=== PATIENT | male | born 1955 | race African-American/Black ===

== ENCOUNTER 2019-02-26 10:18 | Inpatient (IN) | payer MEDICARE, OTHER | END 2019-03-06 14:00 | disposition home or self-care (01) | LOC: TELE-CENTR 03-01 13:36 → TELE 02-27 08:48 → ER 10:18 → ICU WEST 02-27 08:50 → DOU IN ICU 02-27 17:38 → OVERFLOW 13:33 → ICU WEST 17:23 | PROC: B2111ZZ Fluoroscopy of Multiple Coronary Arteries using Low Osmolar Contrast (ICD-10-PCS; principal; ~2019-02-26) | PROC: 027034Z Dilation of Coronary Artery, One Artery with Drug-eluting Intraluminal Device, Percutaneous Approach (ICD-10-PCS; ~2019-02-26) | PROC: 4A023N7 Measurement of Cardiac Sampling and Pressure, Left Heart, Percutaneous Approach (ICD-10-PCS; ~2019-02-26) | PROC: B2151ZZ Fluoroscopy of Left Heart using Low Osmolar Contrast (ICD-10-PCS; ~2019-02-26) | DX: A41.9 Sepsis, unspecified organism (principal); E11.11 Type 2 diabetes mellitus with ketoacidosis with coma; N17.0 Acute kidney failure with tubular necrosis; I21.4 Non-ST elevation (NSTEMI) myocardial infarction; R65.21 Severe sepsis with septic shock; G92 Toxic encephalopathy; E87.0 Hyperosmolality and hypernatremia; I13.0 Hypertensive heart and chronic kidney disease with heart failure and stage 1 through stage 4 chronic kidney disease, or unspecified chronic kidney disease; I50.32 Chronic diastolic (congestive) heart failure; N18.3 Chronic kidney disease, stage 3 (moderate); E87.5 Hyperkalemia; E87.6 Hypokalemia; E11.22 Type 2 diabetes mellitus with diabetic chronic kidney disease ==

== ENCOUNTER 2019-04-11 00:25 | Inpatient (IN) | payer MEDICARE, OTHER | END 2019-04-17 16:50 | disposition home health service (06) | LOC: WEST WING 04-15 12:59 → TELE-WESTW 04-16 03:52 → WEST WING 04-15 18:33 → ER 00:25 → ICU WEST 05:59 → TELE 07:28 → ICU WEST 20:01 | PROC: 5A1945Z Respiratory Ventilation, 24-96 Consecutive Hours (ICD-10-PCS; principal; ~2019-04-11) | PROC: 0BH17EZ Insertion of Endotracheal Airway into Trachea, Via Natural or Artificial Opening (ICD-10-PCS; ~2019-04-11) | PROC: 30233N1 Transfusion of Nonautologous Red Blood Cells into Peripheral Vein, Percutaneous Approach (ICD-10-PCS; ~2019-04-11) | DX: A41.9 Sepsis, unspecified organism (principal); E11.11 Type 2 diabetes mellitus with ketoacidosis with coma; E43 Unspecified severe protein-calorie malnutrition; J96.01 Acute respiratory failure with hypoxia; J18.9 Pneumonia, unspecified organism; I50.43 Acute on chronic combined systolic (congestive) and diastolic (congestive) heart failure; I63.9 Cerebral infarction, unspecified; J96.02 Acute respiratory failure with hypercapnia; N17.0 Acute kidney failure with tubular necrosis; E87.1 Hypo-osmolality and hyponatremia; N17.9 Acute kidney failure, unspecified; E87.0 Hyperosmolality and hypernatremia; R06.03 Acute respiratory distress; E11.22 Type 2 diabetes mellitus with diabetic chronic kidney disease; I95.9 Hypotension, unspecified; D64.9 Anemia, unspecified; E87.5 Hyperkalemia; I25.10 Atherosclerotic heart disease of native coronary artery without angina pectoris; E55.9 Vitamin D deficiency, unspecified; E87.6 Hypokalemia; N18.3 Chronic kidney disease, stage 3 (moderate) ==

== ENCOUNTER → 2019-05-26 | Outpatient (CLI) | payer MEDICARE, OTHER ==
[~2019-05-26] MED LIST: AML5T PO; ASPI81CH43 PO; ATOR20TA PO; CAR3125T PO; CLOP75TA41 PO; FERR-7 PO; PANT40T PO; SUCR1TAB PO
[2019-05-26 16:30] LABS: Basophils # (auto) 0.1 uL; Basophils % (auto) 0.7 % (0.0-2.0); Eosinophils # (auto) 0.2 uL; Eosinophils % (auto) 1.4 % (0.0-7.0); Lymphocytes # (auto) 1.1 uL; Lymphocytes % (auto) 10.1 % (10.0-50.0); Mean Corpuscular Hemoglobin 24.2 pg (28.0-32.0); Mean Corpuscular Hgb Conc. 29.6 g/dL (32.0-36.0); Mean Corpuscular Volume 81.8 fL (80.0-100.0); Monocytes # (auto) 0.9 uL; Monocytes % (auto) 8.1 % (0.0-12.0); Neutrophils # (auto) 8.9 uL; Neutrophils % (auto) 79.7 % (37.0-80.0); Nucleated Red Blood Cells % 0.3 %; Platelet Count (auto) 526 10^3/uL (140-450); Red Blood Cells 1.95 10^6/uL (4.5-5.90); White Blood Cell 11.2 10^3/uL (4.4-10.8)
[2019-05-26 16:45] LABS: Hemoglobin 4.7 g/dL (13.5-17.5)
[2019-05-26 16:48] LABS: Urine Bacteria NONE SEEN /hpf (None Seen); Urine Blood Negative /uL (Negative); Urine Hyaline Cast FEW /lpf (0 - 2); Urine WBC 1 /hpf (0 - 3)
[2019-05-26 17:02] LABS: BUN/Creatinine Ratio 23.3; Calcium 8.6 mg/dL (8.5-10.1); Potassium 5.2 mmol/L (3.5-5.1)
== END | disposition home or self-care (01) ==
LOC: LAB 15:56
PROVIDERS: ATTEND Internal Medicine
DX: I12.9 Hypertensive chronic kidney disease with stage 1 through stage 4 chronic kidney disease, or unspecified chronic kidney disease (principal); E11.22 Type 2 diabetes mellitus with diabetic chronic kidney disease; N18.3 Chronic kidney disease, stage 3 (moderate); Z79.899 Other long term (current) drug therapy
CPT/HCPCS: 36415; 80048; 81001; 82043; 83036; 84300; 85025; 87086

== ENCOUNTER → 2019-06-02 | Outpatient (CLI) | payer MEDICARE, OTHER ==
[2019-06-02 16:04] LABS: Basophils # (auto) 0.1 uL; Eosinophils # (auto) 0.1 uL; Eosinophils % (auto) 1.3 % (0.0-7.0); Hematocrit 28.9 % (41.0-53.0); Hemoglobin 9.2 g/dL (13.5-17.5); Lymphocytes # (auto) 0.8 uL; Lymphocytes % (auto) 8.6 % (10.0-50.0); Mean Corpuscular Hgb Conc. 31.7 g/dL (32.0-36.0); Mean Corpuscular Volume 85.2 fL (80.0-100.0); Monocytes # (auto) 0.6 uL; Neutrophils # (auto) 7.3 uL; Neutrophils % (auto) 82.1 % (37.0-80.0); Platelet Count (auto) 320 10^3/uL (140-450); Red Cell Distribution Width 18.1 % (11.8-14.3); White Blood Cell 8.9 10^3/uL (4.4-10.8)
== END | disposition home or self-care (01) ==
LOC: LAB 15:30
PROVIDERS: ATTEND Internal Medicine
DX: E11.22 Type 2 diabetes mellitus with diabetic chronic kidney disease (principal); N18.3 Chronic kidney disease, stage 3 (moderate)
CPT/HCPCS: 36415; 85025

== ENCOUNTER 2019-06-12 20:58 | Emergency (ER) | payer MEDICARE, OTHER ==
[~2019-06-12] VITALS: Ht 167.6 cm; Wt 65.3 kg
[2019-06-12] MEDS ORDERED: FUROSEMIDE 40 MG/4 ML VIAL IV ONE (22:30)
[2019-06-12 23:55] LABS: Basophils # (auto) 0.1 uL; Eosinophils # (auto) 0 uL; Lymphocytes # (auto) 0.4 uL; Lymphocytes % (auto) 3.2 % (10.0-50.0); Monocytes # (auto) 0.4 uL; Monocytes % (auto) 2.9 % (0.0-12.0); Neutrophils # (auto) 12.5 uL
[2019-06-12 23:56] LABS: Basophils % (auto) 0.8 % (0.0-2.0); Eosinophils % (auto) 0.3 % (0.0-7.0); Hematocrit 28.5 % (41.0-53.0); Hemoglobin 9.1 g/dL (13.5-17.5); Mean Corpuscular Hemoglobin 27.9 pg (28.0-32.0); Mean Corpuscular Hgb Conc. 31.8 g/dL (32.0-36.0); Mean Corpuscular Volume 87.7 fL (80.0-100.0); Neutrophils % (auto) 92.8 % (37.0-80.0); Platelet Count (auto) 448 10^3/uL (140-450); Red Blood Cells 3.24 10^6/uL (4.5-5.90); White Blood Cell 13.5 10^3/uL (4.4-10.8)
[2019-06-13] MEDS ORDERED: LABETALOL HCL 5 MG/ML ML 20ML VIAL IV ONE
[2019-06-13 00:01] LABS: Red Cell Distribution Width 20.7 % (11.8-14.3)
[2019-06-13 00:06] LABS: Albumin 2.2 g/dL (3.4-5.0); BUN/Creatinine Ratio 19.8; Calcium 8.3 mg/dL (8.5-10.1); Potassium 3.4 mmol/L (3.5-5.1)
[2019-06-13 00:09] LABS: Bilirubin, Total 0.1 mg/dL (0.2-1.0); Total Protein 5.7 g/dL (6.4-8.2)
[2019-06-13 00:14] LABS: Urine Bacteria NONE SEEN /hpf (None Seen); Urine Blood TRACE /uL (Negative); Urine Specific Gravity 1.012 (1.001-1.035); Urine WBC 11 /hpf (0 - 3)
[2019-06-13 05:00] VITALS: BP 181/77
== END 2019-06-13 06:34 | disposition home or self-care (01) ==
LOC: EDBD 20:58 → ER 20:58
DX: E11.649 Type 2 diabetes mellitus with hypoglycemia without coma (principal); T68.XXXA Hypothermia, initial encounter; E11.22 Type 2 diabetes mellitus with diabetic chronic kidney disease; I13.0 Hypertensive heart and chronic kidney disease with heart failure and stage 1 through stage 4 chronic kidney disease, or unspecified chronic kidney disease; N18.9 Chronic kidney disease, unspecified; I50.89 Other heart failure; E78.5 Hyperlipidemia, unspecified; F17.210 Nicotine dependence, cigarettes, uncomplicated; Z79.899 Other long term (current) drug therapy; Z79.4 Long term (current) use of insulin
CPT/HCPCS: 36415; 71045; 80053; 81001; 82962; 83605; 83880; 84484; 85025; 93005; 96374; 96375; 99284; J1940

== ENCOUNTER 2019-07-03 16:49 | Emergency (ER) | payer MEDICARE, OTHER ==
[~2019-07-03] VITALS: Ht 167.6 cm; Wt 63.5 kg
[~2019-07-03 16:49] MED LIST changes: -ATOR20TA50 PO; -PRED1SUS31 OP
[2019-07-03 17:51] LABS: Basophils # (auto) 0.1 uL; Eosinophils # (auto) 0.2 uL; Eosinophils % (auto) 2.6 % (0.0-7.0); Monocytes # (auto) 0.4 uL; Neutrophils # (auto) 6.2 uL; Red Blood Cells 2.41 10^6/uL (4.5-5.90)
[2019-07-03 17:54] LABS: Hematocrit 21.6 % (41.0-53.0); Lymphocytes # (auto) 0.7 uL; Lymphocytes % (auto) 9.6 % (10.0-50.0); Mean Corpuscular Hemoglobin 28.9 pg (28.0-32.0); Mean Corpuscular Hgb Conc. 32.2 g/dL (32.0-36.0); Mean Corpuscular Volume 89.8 fL (80.0-100.0); Monocytes % (auto) 4.9 % (0.0-12.0); Neutrophils % (auto) 81.9 % (37.0-80.0); Platelet Count (auto) 294 10^3/uL (140-450); White Blood Cell 7.5 10^3/uL (4.4-10.8)
[2019-07-03 17:56] LABS: Red Cell Distribution Width 20.4 % (11.8-14.3)
[2019-07-03 19:10] LABS: Alanine Aminotransferase 16 U/L (16-61); Alkaline Phosphatase 96 U/L (45-117); Anion Gap 6 (5-15); Aspartate Aminotransferase 24 U/L (15-37); BUN/Creatinine Ratio 16.2; Bilirubin, Total 0.2 mg/dL (0.2-1.0); Blood Urea Nitrogen 36 mg/dL (7-18); Calcium 8.1 mg/dL (8.5-10.1); Carbon Dioxide 29 mmol/L (21-32); Chloride 106 mmol/L (98-107); GFR African American 38 mL/min; GFR Non-African American 32 mL/min; Glucose 320 mg/dL (74-106); Potassium 3.7 mmol/L (3.5-5.1); Sodium 141 mmol/L (136-145); Total Protein 5.8 g/dL (6.4-8.2)
[2019-07-03 19:11] LABS: Albumin 2.2 g/dL (3.4-5.0)
[2019-07-03 19:52] LABS: INR < 0.93 (0.9-1.15); Partial Thromboplastin Time 27.6 sec (23.64-32.05)
[2019-07-03 20:26] VITALS: BP 175/84
[2019-07-03 20:43] VITALS: BP 182/79
[2019-07-03 21:22] VITALS: BP 183/79
[2019-07-03] MEDS ORDERED: cloNIDine HCL 0.1 MG TAB PO ONE (22:00)
[2019-07-03 22:41] VITALS: BP 198/83
[2019-07-03 23:23] VITALS: BP 179/78
[2019-07-03 23:35] VITALS: BP 184/82
[2019-07-04 00:14] VITALS: BP 181/85
[2019-07-04 00:32] VITALS: BP 196/85
[2019-07-04] MEDS ORDERED: FUROSEMIDE 20 MG/2 ML VIAL IV ONE (00:45)
[2019-07-04 01:18] VITALS: BP 185/84
[2019-07-04 02:07] LABS: Hematocrit 28.9 % (41.0-53.0); Hemoglobin 9.8 g/dL (13.5-17.5)
[2019-07-04] MEDS ORDERED: cloNIDine HCL 0.1 MG TAB ONE (02:29)
[2019-07-04] MEDS ORDERED: hydrALAZINE HCL 20 MG/ML VL IV ONE (03:15)
[2019-07-04 03:57] VITALS: BP 149/64
== END 2019-07-04 04:21 | disposition home or self-care (01) ==
LOC: ER 16:49
DX: D64.9 Anemia, unspecified (principal); E11.22 Type 2 diabetes mellitus with diabetic chronic kidney disease; I13.0 Hypertensive heart and chronic kidney disease with heart failure and stage 1 through stage 4 chronic kidney disease, or unspecified chronic kidney disease; N18.3 Chronic kidney disease, stage 3 (moderate); I50.9 Heart failure, unspecified; E78.5 Hyperlipidemia, unspecified; F17.210 Nicotine dependence, cigarettes, uncomplicated; Z98.61 Coronary angioplasty status; Z79.899 Other long term (current) drug therapy
CPT/HCPCS: 36415; 36430; 71045; 80053; 83735; 85014; 85018; 85025; 85610; 85730; 86850; 86900; 86901; 86920; 94761; 96374; 96375; 99285; J0360; J1940; J7030; P9016

== ENCOUNTER → 2019-07-03 | Outpatient (CLI) | payer MEDICARE, OTHER ==
[~2019-07-03] MED LIST changes: +ATOR20TA50 PO; +PRED1SUS31 OP
[2019-07-03 15:53] LABS: Urine WBC None Seen /hpf (0 - 3)
[2019-07-03 16:06] LABS: Basophils # (auto) 0.1 uL; Eosinophils # (auto) 0.2 uL; Red Cell Distribution Width 20.7 % (11.8-14.3)
[2019-07-03 16:08] LABS: Eosinophils % (auto) 2.6 % (0.0-7.0); Hematocrit 21.2 % (41.0-53.0); Lymphocytes # (auto) 0.7 uL; Lymphocytes % (auto) 8.7 % (10.0-50.0); Mean Corpuscular Hemoglobin 28.6 pg (28.0-32.0); Mean Corpuscular Hgb Conc. 32.3 g/dL (32.0-36.0); Mean Corpuscular Volume 88.6 fL (80.0-100.0); Monocytes # (auto) 0.4 uL; Monocytes % (auto) 4.6 % (0.0-12.0); Neutrophils # (auto) 6.7 uL; Neutrophils % (auto) 83.1 % (37.0-80.0); Platelet Count (auto) 304 10^3/uL (140-450); White Blood Cell 8.1 10^3/uL (4.4-10.8)
[2019-07-03 16:24] LABS: INR < 0.93 (0.9-1.15); Partial Thromboplastin Time 26.9 sec (23.64-32.05)
[2019-07-03 16:27] LABS: Hemoglobin 6.9 g/dL (13.5-17.5)
[2019-07-03 16:32] LABS: Urine Bacteria NONE SEEN /hpf (None Seen); Urine Blood Negative /uL (Negative); Urine Specific Gravity 1.014 (1.001-1.035)
[2019-07-03 16:44] LABS: Albumin 2.2 g/dL (3.4-5.0); Calcium 8.1 mg/dL (8.5-10.1); Magnesium 2.8 mg/dL (1.6-2.6); Potassium 3.6 mmol/L (3.5-5.1)
[2019-07-03 16:50] LABS: BUN/Creatinine Ratio 15.2; Bilirubin, Total 0.2 mg/dL (0.2-1.0); Phosphorus 4.9 mg/dL (2.5-4.90)
[2019-07-04 08:06] LABS: Immunoglobulin G, Serum 576 mg/dL (700-1600)
[2019-07-06 10:46] LABS: Hepatitis B Surface Antibody Positive
[2019-07-06 14:03] LABS: Hepatitis B Surface Antigen Negative (Negative)
[2019-07-06 14:05] LABS: Hepatitis B Core IgM Negative
== END | disposition home or self-care (01) ==
LOC: LAB 15:26
PROVIDERS: ATTEND Internal Medicine Nephrology
DX: E11.22 Type 2 diabetes mellitus with diabetic chronic kidney disease (principal); I12.0 Hypertensive chronic kidney disease with stage 5 chronic kidney disease or end stage renal disease; N18.6 End stage renal disease; R80.9 Proteinuria, unspecified; Z11.59 Encounter for screening for other viral diseases
CPT/HCPCS: 36415; 80053; 80061; 81001; 82784; 83735; 83883; 83970; 84100; 84155; 84165; 84439; 84443; 85025; 85610; 85730; 86334; 86335; 86703; 86705; 86706; 86803; 87340

== ENCOUNTER → 2019-08-18 | Outpatient (CLI) | payer MEDICARE, OTHER ==
[2019-08-18 14:57] LABS: Basophils # (auto) 0.1 uL; Basophils % (auto) 1.1 % (0.0-2.0); Eosinophils # (auto) 0.1 uL; Eosinophils % (auto) 1.5 % (0.0-7.0); Hematocrit 29.7 % (41.0-53.0); Lymphocytes # (auto) 0.7 uL; Lymphocytes % (auto) 9.1 % (10.0-50.0); Mean Corpuscular Hemoglobin 29.4 pg (28.0-32.0); Mean Corpuscular Hgb Conc. 33.6 g/dL (32.0-36.0); Mean Corpuscular Volume 87.5 fL (80.0-100.0); Monocytes # (auto) 0.4 uL; Neutrophils % (auto) 83.3 % (37.0-80.0); Platelet Count (auto) 308 10^3/uL (140-450); Red Blood Cells 3.39 10^6/uL (4.5-5.90); Red Cell Distribution Width 15.5 % (11.8-14.3); White Blood Cell 7.3 10^3/uL (4.4-10.8)
[2019-08-18 15:30] LABS: BUN/Creatinine Ratio 14.8; Calcium 10.4 mg/dL (8.5-10.1); Potassium 3.5 mmol/L (3.5-5.1)
== END | disposition home or self-care (01) ==
LOC: LAB 14:42
PROVIDERS: ATTEND Internal Medicine Nephrology
DX: D64.9 Anemia, unspecified (principal); I13.0 Hypertensive heart and chronic kidney disease with heart failure and stage 1 through stage 4 chronic kidney disease, or unspecified chronic kidney disease; E11.22 Type 2 diabetes mellitus with diabetic chronic kidney disease; I50.9 Heart failure, unspecified; N18.4 Chronic kidney disease, stage 4 (severe)
CPT/HCPCS: 36415; 80048; 85025

== ENCOUNTER → 2019-09-08 | Outpatient (CLI) | payer MEDICARE, OTHER ==
[2019-09-08 16:07] LABS: Eosinophils # (auto) 0.2 uL; Hemoglobin 7.7 g/dL (13.5-17.5); Lymphocytes # (auto) 0.8 uL
[2019-09-08 16:14] LABS: Eosinophils % (auto) 2.9 % (0.0-7.0); Neutrophils % (auto) 79.8 % (37.0-80.0)
[2019-09-08 16:26] LABS: Basophils # (auto) 0.1 uL; Basophils % (auto) 0.7 % (0.0-2.0); Hematocrit 23.3 % (41.0-53.0); Lymphocytes % (auto) 9.7 % (10.0-50.0); Mean Corpuscular Hemoglobin 29.7 pg (28.0-32.0); Mean Corpuscular Hgb Conc. 32.8 g/dL (32.0-36.0); Mean Corpuscular Volume 90.5 fL (80.0-100.0); Monocytes # (auto) 0.5 uL; Monocytes % (auto) 6.9 % (0.0-12.0); Neutrophils # (auto) 6.2 uL; Platelet Count (auto) 304 10^3/uL (140-450); Red Blood Cells 2.58 10^6/uL (4.5-5.90); Red Cell Distribution Width 15.5 % (11.8-14.3); White Blood Cell 7.8 10^3/uL (4.4-10.8)
[2019-09-08 16:51] LABS: Albumin 2.9 g/dL (3.4-5.0); BUN/Creatinine Ratio 11.1; Calcium 8.5 mg/dL (8.5-10.1); Potassium 3.5 mmol/L (3.5-5.1)
[2019-09-08 16:54] LABS: Bilirubin, Total 0.1 mg/dL (0.2-1.0); Total Protein 6.7 g/dL (6.4-8.2)
[2019-09-08 17:00] LABS: Ferritin 24.2 ng/mL (10-322); Free T4 (Free Thyroxine) 0.94 ng/dL (0.89-1.76)
[2019-09-08 17:01] LABS: Folate (Folic Acid) > 24.00 ng/mL (5.38-24)
[2019-09-10 08:06] LABS: Immunoglobulin G, Serum 853 mg/dL (700-1600)
[2019-09-10 08:42] LABS: Protein, Urine 326.2 mg/dL (0.0-11.9)
[2019-09-10 11:13] LABS: 24 Hr. Total Protein, Urine 2772.7 mg/24 Hr (<149.1)
== END | disposition home or self-care (01) ==
LOC: LAB 15:07
PROVIDERS: ATTEND Internal Medicine
DX: I13.0 Hypertensive heart and chronic kidney disease with heart failure and stage 1 through stage 4 chronic kidney disease, or unspecified chronic kidney disease (principal); E11.22 Type 2 diabetes mellitus with diabetic chronic kidney disease; I50.9 Heart failure, unspecified; D63.1 Anemia in chronic kidney disease; N18.3 Chronic kidney disease, stage 3 (moderate); R77.8 Other specified abnormalities of plasma proteins
CPT/HCPCS: 36415; 80053; 82232; 82607; 82668; 82728; 82746; 82784; 83036; 83540; 83615; 83883; 84156; 84436; 84439; 84443; 85025; 85045; 85652; 86038; 86334; 86335; 86880; 86885

== ENCOUNTER → 2019-09-10 | Outpatient (CLI) | payer MEDICARE, OTHER ==
[~2019-09-10] MED LIST changes: +ATOR20TA50 PO; +PRED1SUS31 OP
== END | disposition home or self-care (01) ==
LOC: LAB 10:08
PROVIDERS: ATTEND Internal Medicine
DX: D47.2 Monoclonal gammopathy (principal); I13.0 Hypertensive heart and chronic kidney disease with heart failure and stage 1 through stage 4 chronic kidney disease, or unspecified chronic kidney disease; E11.22 Type 2 diabetes mellitus with diabetic chronic kidney disease; N18.4 Chronic kidney disease, stage 4 (severe); I50.9 Heart failure, unspecified
CPT/HCPCS: 88189; 88291; 88341

== ENCOUNTER → 2019-09-25 | Outpatient (CLI) | payer MEDICARE, OTHER ==
[2019-09-25 13:39] LABS: Basophils # (auto) 0.1 uL; Basophils % (auto) 1.2 % (0.0-2.0); Eosinophils # (auto) 0.1 uL; Eosinophils % (auto) 1.3 % (0.0-7.0); Hematocrit 24.6 % (41.0-53.0); Red Blood Cells 2.58 10^6/uL (4.5-5.90)
[2019-09-25 13:45] LABS: Hemoglobin 8.1 g/dL (13.5-17.5); Lymphocytes # (auto) 0.9 uL; Lymphocytes % (auto) 14.5 % (10.0-50.0); Mean Corpuscular Hemoglobin 31.4 pg (28.0-32.0); Mean Corpuscular Volume 95.1 fL (80.0-100.0); Monocytes # (auto) 0.5 uL; Monocytes % (auto) 7.4 % (0.0-12.0); Neutrophils # (auto) 4.9 uL; Neutrophils % (auto) 75.6 % (37.0-80.0); Platelet Count (auto) 369 10^3/uL (140-450); Red Cell Distribution Width 17.2 % (11.8-14.3); White Blood Cell 6.5 10^3/uL (4.4-10.8)
== END | disposition home or self-care (01) ==
LOC: LAB 13:24
PROVIDERS: ATTEND Internal Medicine Nephrology
DX: N18.4 Chronic kidney disease, stage 4 (severe) (principal); D63.1 Anemia in chronic kidney disease; I50.9 Heart failure, unspecified; R60.9 Edema, unspecified; F32.9 Major depressive disorder, single episode, unspecified; F17.200 Nicotine dependence, unspecified, uncomplicated; Z95.811 Presence of heart assist device; E11.22 Type 2 diabetes mellitus with diabetic chronic kidney disease; I13.0 Hypertensive heart and chronic kidney disease with heart failure and stage 1 through stage 4 chronic kidney disease, or unspecified chronic kidney disease
CPT/HCPCS: 36415; 85025

== ENCOUNTER 2019-09-28 13:59 | Inpatient (IN) | payer MEDICARE, OTHER ==
[~2019-09-28] VITALS: Ht 167.6 cm; Wt 61.9 kg
[~2019-09-28 13:59] MED LIST changes: -ATOR20TA50 PO; -PRED1SUS31 OP
[2019-09-28 14:39] LABS: Basophils # (auto) 0 uL; Basophils % (auto) 0.7 % (0.0-2.0); Eosinophils # (auto) 0.1 uL; Eosinophils % (auto) 1.8 % (0.0-7.0); Hematocrit 22.9 % (41.0-53.0); Hemoglobin 7.5 g/dL (13.5-17.5); Lymphocytes # (auto) 0.8 uL; Lymphocytes % (auto) 13.2 % (10.0-50.0); Mean Corpuscular Hemoglobin 31.6 pg (28.0-32.0); Mean Corpuscular Hgb Conc. 32.8 g/dL (32.0-36.0); Mean Corpuscular Volume 96.5 fL (80.0-100.0); Monocytes # (auto) 0.4 uL; Monocytes % (auto) 6.9 % (0.0-12.0); Neutrophils # (auto) 4.8 uL; Neutrophils % (auto) 77.4 % (37.0-80.0); Platelet Count (auto) 360 10^3/uL (140-450); Red Blood Cells 2.37 10^6/uL (4.5-5.90); Red Cell Distribution Width 17.2 % (11.8-14.3); White Blood Cell 6.2 10^3/uL (4.4-10.8)
[2019-09-28 15:04] LABS: Albumin 2.9 g/dL (3.4-5.0); Anion Gap 6 (5-15); Blood Urea Nitrogen 32 mg/dL (7-18); Calcium 7.6 mg/dL (8.5-10.1); Carbon Dioxide 24 mmol/L (21-32); Chloride 112 mmol/L (98-107); Glucose 207 mg/dL (74-106); Potassium 4.2 mmol/L (3.5-5.1); Sodium 142 mmol/L (136-145)
[2019-09-28 15:11] LABS: Alanine Aminotransferase 19 U/L (16-61); Alkaline Phosphatase 69 U/L (45-117); Aspartate Aminotransferase 27 U/L (15-37); BUN/Creatinine Ratio 11.1; Bilirubin, Total 0.3 mg/dL (0.2-1.0); GFR African American 28 mL/min; GFR Non-African American 23 mL/min; Total Protein 6.4 g/dL (6.4-8.2)
[2019-09-28] MEDS ORDERED: NITROGLYCERIN 0.4 MG SL TAB SL PRN (16:15)
[2019-09-28] MEDS ORDERED: DEXTROSE (50%) 50ML SYRG IV PRN (16:15)
[2019-09-28] MEDS ORDERED: MORPHINE SULF INJ 2 MG/ML SYRINGE 1ML IV PRN (16:15)
[2019-09-28 16:47] LABS: Cholesterol 160 mg/dL (< 200)
[2019-09-28 16:50] LABS: HDL Cholesterol 66 mg/dL (40-59); LDL Cholesterol 63 mg/dL (< 100); Triglycerides 122 mg/dL (< 150)
[2019-09-28] MEDS ORDERED: hydrALAZINE HCL 20 MG/ML VL IV PRN (17:00)
[2019-09-28] MEDS ORDERED: FAMOTIDINE 20 MG TAB PO SCH (17:30)
[2019-09-28] MEDS: ACCU-CHEK COMFORT CURVE STRIP VI SCH ×2 (17:41→22:11)
[2019-09-28] MEDS: InsuLIN REG 1unit/0.01ml Soln (100units/ml) SC SCH ×2 (17:41→22:11)
[2019-09-28] MEDS ORDERED: ATORVASTATIN 20 MG TAB PO SCH (18:00)
--- NOTE | 2019-09-28 19:20 | NUR ---
Opening Shift Note Received report from rhonda Carson RN. Assumed care of patient, awake and alert. No S/S of distress/SOB or pain. Instructed on POC and to call for assist PRN, will continue to monitor for changes Q1hr and PRN. Bed placed in lowest position, bed alarm turned on and call light within reach.
[2019-09-28 20:00] VITALS: BP 179/64
[2019-09-28 22:00] VITALS: BP 179/64
[2019-09-28] MEDS: FERROUS SULFATE 325 MG TAB PO SCH (22:06)
[2019-09-28] MEDS: CARVEDILOL 3.125 MG TAB PO SCH (22:09)
[2019-09-29] VITALS (12 sets, daily range): BP systolic 115–178; BP diastolic 50–81
--- NOTE | 2019-09-29 05:04 | NUR ---
ROUNDS PATIENT IS RESTING IN BED WITH EYES CLOSED, NO DISTRESS NOTED AND PATIENT DENIES PAIN
[2019-09-29 05:14] LABS: Basophils # (auto) 0.1 uL; Mean Corpuscular Hgb Conc. 32.9 g/dL (32.0-36.0); Mean Corpuscular Volume 94.7 fL (80.0-100.0); Monocytes # (auto) 0.6 uL
[2019-09-29 05:16] LABS: Basophils % (auto) 1.3 % (0.0-2.0); Eosinophils # (auto) 0.2 uL; Eosinophils % (auto) 2.6 % (0.0-7.0); Hematocrit 21.2 % (41.0-53.0); Lymphocytes % (auto) 17.2 % (10.0-50.0); Mean Corpuscular Hemoglobin 31.1 pg (28.0-32.0); Neutrophils # (auto) 3.9 uL; Neutrophils % (auto) 67.9 % (37.0-80.0); Platelet Count (auto) 329 10^3/uL (140-450); Red Blood Cells 2.24 10^6/uL (4.5-5.90); Red Cell Distribution Width 17.1 % (11.8-14.3); White Blood Cell 5.8 10^3/uL (4.4-10.8)
--- NOTE | 2019-09-29 05:20 | NUR ---
LA TORRE FROM LAB CALLED AND REPORTS A HEMOGLOBIN OF 7.0. HOSPITALIST PAGED.
[2019-09-29 05:28] LABS: INR < 0.93 (0.9-1.15); Partial Thromboplastin Time 25.6 sec (23.64-32.05)
[2019-09-29 05:32] LABS: Albumin 2.5 g/dL (3.4-5.0); Calcium 7.5 mg/dL (8.5-10.1); Potassium 3.7 mmol/L (3.5-5.1)
[2019-09-29 05:35] LABS: BUN/Creatinine Ratio 11.6; Bilirubin, Total 0.1 mg/dL (0.2-1.0); Total Protein 5.5 g/dL (6.4-8.2)
--- NOTE | 2019-09-29 06:00 | NUR ---
PATIENT'S BLOOD SUGAR IS 71. PATIENT IS RESTING IN BED, NO DISTRESS NOTED OR NO S/S OF HYPOGLYCEMIA. ORANGE JUICE GIVEN. WILL MONITOR
[2019-09-29] MEDS: ACCU-CHEK COMFORT CURVE STRIP VI SCH ×4 (06:03→22:10)
[2019-09-29] MEDS: InsuLIN REG 1unit/0.01ml Soln (100units/ml) SC SCH ×4 (06:03→22:10)
--- NOTE | 2019-09-29 06:39 | NUR ---
URINE SPECIMEN SENT TO LAB
[2019-09-29 06:40] LABS: Urine Bacteria FEW /hpf (None Seen); Urine Blood Negative /uL (Negative); Urine Hyaline Cast FEW /lpf (0 - 2); Urine Specific Gravity 1.012 (1.001-1.035); Urine WBC 1 /hpf (0 - 3)
--- NOTE | 2019-09-29 06:44 | NUR ---
HOSPITALIST CALLED BACK AND INFORMED OF 7.0 HEMOGLOBIN. RECEIVED AN ORDER TO REPEAT H & H IN 4 HOURS. ORDER NOTED.
--- NOTE | 2019-09-29 07:25 | NUR ---
PATIENT ADMITTED AT 1800 ON 09/28/2019 WITH LEFT SIDE FACIAL DROOP AND DECREASED STRENGTH OF THE RIGHT ARM
[2019-09-29] MEDS: CLOPIDOGREL BISULFATE 75 MG TAB PO SCH (09:32)
[2019-09-29] MEDS: FERROUS SULFATE 325 MG TAB PO SCH (09:32)
[2019-09-29] MEDS: ASPirin 81 mg TAB PO SCH (09:33)
[2019-09-29] MEDS: FAMOTIDINE 20 MG TAB PO SCH (09:33)
[2019-09-29] MEDS: amLODIPine BESYLATE 5 MG TAB PO SCH (09:33)
[2019-09-29] MEDS: CARVEDILOL 3.125 MG TAB PO SCH ×2 (09:34→22:09)
[2019-09-29 11:20] LABS: Hematocrit 21.6 % (41.0-53.0)
--- NOTE | 2019-09-29 12:00 | NUR ---
DR KHOURY INFORMED ABOUT CRITICAL VALUE HgB OF 7.0. ORDERED TRANSFUSION OF 1 UNIT PRBC'S.
[2019-09-29] MEDS ORDERED: DEXTROSE (50%) 50ML SYRG IV PRN (12:45)
[2019-09-29 13:45] LABS: % Iron Saturation 90.8 % (20-55)
[2019-09-29] MEDS ORDERED: IRON SUCROSE COMPLEX 200 MG in SODIUM CHL 0.9% 100 ML IV SCH (16:06)
[2019-09-29] MEDS: ATORVASTATIN 20 MG TAB PO SCH (17:41)
--- NOTE | 2019-09-29 20:10 | NUR ---
Respiratory note: CONTINUOUS PULSOX CHECK ON PT. SPO2 100% ON RA, HR 67, RR 16. NO SIGNS OF ANY RESPIRATORY DISTRESS NOTED.
--- NOTE | 2019-09-29 20:58 | NUR ---
ONE UNIT OF BLOOD TRANSFUSION INITIATED AFTER VERIFYING CONSENTS. PATIENT IS STABLE, RESTING IN BED WITH NO DISTRESS NOTED.
[2019-09-29] MEDS ORDERED: EPOETIN ALFA 4,000 UNIT/ML VL SC ONE (21:00)
[2019-09-29] MEDS ORDERED: LORazepam 2MG/ML-1ML VIAL IV PRN (21:15)
--- NOTE | 2019-09-29 22:00 | NUR ---
Respiratory note: PT REFUSING TO WEAR CPAP. I EXPLAINED DOCTORS ORDERS TO PT AND EXPLAINED THE BENEFITS OF WEARING CPAP AT [facility]. PT STATED HE'S NEVER BEEN DIAGNOSED WITH JAGDEEP NOR HAS HE EVER WORE A CPAP MACHINE BEFORE. PT STATED HE SLEEPS FINE WITH NO ISSUES. ADVISED RN THAT PT REFUSING CPAP. PT STILL CONNECTED TO PULSOX. NO SIGNS OF ANY RESPIRATORY DISTRESS NOTED.
--- NOTE | 2019-09-29 22:00 | NUR ---
IV removal IV to right upper arm infiltrated. IV DC'd with sterile technique, catheter fully intact. Pressure dressing applied to site. Patient tolerated procedure well.
--- NOTE | 2019-09-29 22:00 | NUR ---
IV insertion IV access obtained, via clean sterile technique by inserting 22 gauge catheter at right forearm after first attempt. IV secured properly. No trauma to site. Patient tolerated procedure well.
--- NOTE | 2019-09-29 23:46 | NUR ---
Blood transfusion ended. No adverse reactions noted. Patient is resting in bed alert and awake, denies pain and no distress noted. Vitals are temp 97.9, 66 pulse, 18 respirations, 159/79 blood pressure. Will monitor.
[2019-09-30] VITALS (8 sets, daily range): BP systolic 136–158; BP diastolic 64–79
--- NOTE | 2019-09-30 | NUR ---
ROUNDS ASSISTED PATIENT TO THE COMMODE. PARTIAL BED BATH GIVEN AND COMPLETE BED CHANGED DONE. ASSISTED PATIENT BACK IN BED, RESTING AND NO DISTRESS NOTED AND PATIENT DENIES PAIN.
--- NOTE | 2019-09-30 02:00 | NUR ---
ROUNDS PATIENT IS RESTING IN BED WITH EYES CLOSED, NO DISTRESS NOTED.
--- NOTE | 2019-09-30 03:00 | NUR ---
EPISODE OF CONFUSION PATIENT'S ALARM TURNED ON AND WHEN NURSE GOT THE ROOM, PATIENT IS SITTING UP IN BED, ANXIOUS AND SEEMED STARTLED AND ANXIOUS TO URINATE. PATIENT URINATED ALL OVER AND AROUND THE BEDSIDE COMMODE WHILE NURSE IS ASSISTING PATIENT TO STAND. NURSE CANNOT REACH THE URINAL, SO PATIENT JUST URINATED ON THE FLOOR. AFTER URINATING, ASSISTED PATIENT TO BED, BUT PATIENT SEEMED CONFUSED. PATIENT IS REFUSING BLOOD SUGAR CHECK AND VITAL SIGNS. PATIENT THEN STARTED TO ROLL HIS EYES AROUND AND STATES HE WANT'S TO GET OUT OF THE BUILDING STATES HE DOES NOT KNOW WHERE HE IS AND STARTED CALLING HIS 'S NAME. USING PATIENT'S PHONE, PATIENT WAS ABLE TO CALL AND REASSURED PATIENT THAT PATIENT IS IN THE RIGHT PLACE. AFTER A FEW MINUTES PATIENT CALMED DOWN AND AGREED TO CHECK BLOOD SUGAR AND VITALS. VITALS AND STABLE AND PATIENT'S BLOOD SUGAR IS 302. WILL MONITOR.
--- NOTE | 2019-09-30 04:00 | NUR ---
ROUNDS PATIENT IS RESTING IN BED, ALERT AND ORIENTED AND NO DISTRESS NOTED. NO MORE CONFUSIONS/HALLUCINATIONS NOTED.
[2019-09-30 05:23] LABS: Basophils # (auto) 0.1 uL; Eosinophils # (auto) 0.1 uL; Hemoglobin 8.2 g/dL (13.5-17.5); Monocytes # (auto) 0.7 uL
[2019-09-30 05:26] LABS: Basophils % (auto) 0.7 % (0.0-2.0); Eosinophils % (auto) 1.6 % (0.0-7.0); Hematocrit 24.4 % (41.0-53.0); Lymphocytes # (auto) 0.9 uL; Lymphocytes % (auto) 10.2 % (10.0-50.0); Mean Corpuscular Hemoglobin 30.9 pg (28.0-32.0); Mean Corpuscular Hgb Conc. 33.6 g/dL (32.0-36.0); Mean Corpuscular Volume 91.9 fL (80.0-100.0); Monocytes % (auto) 7.7 % (0.0-12.0); Neutrophils % (auto) 79.8 % (37.0-80.0); Platelet Count (auto) 329 10^3/uL (140-450); Red Blood Cells 2.65 10^6/uL (4.5-5.90); Red Cell Distribution Width 18.4 % (11.8-14.3); White Blood Cell 8.7 10^3/uL (4.4-10.8)
[2019-09-30 05:40] LABS: BUN/Creatinine Ratio 11.7; Calcium 7.5 mg/dL (8.5-10.1); Potassium 4.4 mmol/L (3.5-5.1)
[2019-09-30] MEDS: InsuLIN REG 1unit/0.01ml Soln (100units/ml) SC SCH ×4 (06:41→22:23)
[2019-09-30] MEDS: ACCU-CHEK COMFORT CURVE STRIP VI SCH ×4 (06:43→22:25)
[2019-09-30] MEDS: ASPirin 81 mg TAB PO SCH (09:55)
[2019-09-30] MEDS: FAMOTIDINE 20 MG TAB PO SCH (09:55)
[2019-09-30] MEDS: PANTOPRAZOLE 40 MG TAB PO SCH ×2 (09:55→22:24)
[2019-09-30] MEDS: amLODIPine BESYLATE 5 MG TAB PO SCH (09:56)
[2019-09-30] MEDS: CLOPIDOGREL BISULFATE 75 MG TAB PO SCH (09:57)
[2019-09-30] MEDS: CARVEDILOL 3.125 MG TAB PO SCH ×2 (09:57→22:25)
--- NOTE | 2019-09-30 11:43 | NUR ---
PT Patient was sent down for a bone scan as per ALDEN Carson. Addendum: 09/30/19 at 1144 by DARLYN BURT PTT Amended: Links added.
[2019-09-30] MEDS ORDERED: IRON SUCROSE COMPLEX 200 MG in SODIUM CHL 0.9% 100 ML IV SCH ×2 (12:00)
--- NOTE | 2019-09-30 12:22 | NUR ---
RT NOTE: WENT TO PTS ROOM TO ASSESS BESIDE PULSE OX, SPO2 100%, HR 61, PT IN NO DISTRESS WILL CONTINUE TO MONITOR PT.
[2019-09-30] MEDS: IRON SUCROSE COMPLEX 200 MG in SODIUM CHL 0.9% 100 ML IV SCH (12:30)
[2019-09-30] MEDS: ATORVASTATIN 20 MG TAB PO SCH (17:36)
--- NOTE | 2019-09-30 18:15 | NUR ---
pox check done. Pt is resting with no acute distress noted. hr 70 rr 16 room air pox 100%. Pt asked about cpap at night, Pt continues to deny need for equipment. Pt aware to page if he changes his mind and would like to try the therapy.
--- NOTE | 2019-09-30 19:15 | NUR ---
Opening Shift Note Received report from rhonda Carson RN. Assumed care of patient, resting in bed with eyes closed at this time. Patient is connected to continuous pulse ox saturating at 100% on room air. Repositioned patient head and pillow, No S/S of distress/SOB or pain noted. Will continue to monitor for changes Q1hr and PRN. Bed placed in lowest position, bed alarm turned on and call light within reach.
[2019-09-30] MEDS: INSULIN LANTUS (GLARGINE) 1 /0.01ml (100units/ml) SC SCH (22:23)
[2019-10-01 05:00] VITALS: BP 160/77
--- NOTE | 2019-10-01 05:32 | NUR ---
PATIENT IS RESTING IN BED ALERT AND ORIENTED, NO DISTRESS OR NO CONFUSIONS NOTED, SATURATING AT 100% ON ROOM AIR.
[2019-10-01 06:34] LABS: Basophils # (auto) 0.1 uL; Basophils % (auto) 0.8 % (0.0-2.0); Eosinophils # (auto) 0.1 uL; Eosinophils % (auto) 1.5 % (0.0-7.0); Hematocrit 26.4 % (41.0-53.0); Hemoglobin 8.7 g/dL (13.5-17.5); Lymphocytes # (auto) 1.2 uL; Lymphocytes % (auto) 13.5 % (10.0-50.0); Mean Corpuscular Hemoglobin 30.3 pg (28.0-32.0); Monocytes % (auto) 10.9 % (0.0-12.0); Neutrophils # (auto) 6.5 uL; Neutrophils % (auto) 73.3 % (37.0-80.0); Platelet Count (auto) 365 10^3/uL (140-450); Red Blood Cells 2.87 10^6/uL (4.5-5.90); Red Cell Distribution Width 18.5 % (11.8-14.3); White Blood Cell 8.9 10^3/uL (4.4-10.8)
[2019-10-01] MEDS: InsuLIN REG 1unit/0.01ml Soln (100units/ml) SC SCH ×4 (06:46→21:48)
[2019-10-01] MEDS: INSULIN LANTUS (GLARGINE) 1 /0.01ml (100units/ml) SC SCH ×2 (06:46→21:51)
[2019-10-01] MEDS: ACCU-CHEK COMFORT CURVE STRIP VI SCH ×4 (06:47→21:49)
[2019-10-01] MEDS: LACTULOSE 20Gm/30ML SOLN PO PRN (06:47)
--- NOTE | 2019-10-01 07:00 | NUR ---
BLOOD SUGAR CHECK WAS 59. PATIENT IS ALERT AND ORIENTED AND ASKED FOR ORANGE JUICE INSTEAD OF IV DEXTROSE 50%, AFTER 15 MINUTES BLOOD SUGAR CHECK IS 67. WILL CHECK AGAIN IN ONE HOUR.
[2019-10-01 07:23] LABS: BUN/Creatinine Ratio 12.1; Calcium 7.8 mg/dL (8.5-10.1)
--- NOTE | 2019-10-01 07:40 | NUR ---
OPENING SHIFT NOTE: PATIENT RESTING IN BED. BED IN LOWEST LOCKED POSITION, UPDATE PATIENT ON PLAN OF CARE. CALL LIGHT PLACED WITHIN REACH. FALL PRECAUTIONS IN PLACE, PATIENT VERBALIZED UNDERSTANDING. BOTH IV'S PATENT AND ASYMPTOMATIC. RESPIRATIONS EVEN AND UNLABORED. WILL CONTINUE TO MONITOR.
--- NOTE | 2019-10-01 07:41 | NUR ---
BLOOD SUGAR FOLLOW UP AFTER ORANGE JUICE IS 149. PATIENT IS ALERT AND ORIENTED, NO DISTRESS NOTED AND PATIENT DENIES PAIN.
[2019-10-01 09:00] VITALS: BP 159/77
[2019-10-01] MEDS: FAMOTIDINE 20 MG TAB PO SCH (10:33)
[2019-10-01] MEDS: PANTOPRAZOLE 40 MG TAB PO SCH ×2 (10:33→21:48)
[2019-10-01] MEDS: CLOPIDOGREL BISULFATE 75 MG TAB PO SCH (10:34)
[2019-10-01] MEDS: amLODIPine BESYLATE 5 MG TAB PO SCH (10:34)
[2019-10-01] MEDS: ASPirin 81 mg TAB PO SCH (10:34)
[2019-10-01] MEDS: CARVEDILOL 3.125 MG TAB PO SCH ×2 (10:35→21:48)
--- NOTE | 2019-10-01 11:21 | NUR ---
PT Patient declined to be OOB or do PT during morning PT visit but requested to comeback later. Addendum: 10/01/19 at 1122 by DARLYN BURT PTT Amended: Links added.
--- NOTE | 2019-10-01 11:25 | NUR ---
PT ROUNDS MARITZA AT BEDSIDE. STATES THE LEFT EYE DROOPING IS NEW AND IS CONCERNED. UPON ASSESSMENT PUPILS ARE EQUAL ROUND. SLUGGISH REACTION TO LIGHT AND ACCOMODATION. PUPILS ARE 6MM. PT STATES "MY EYE HAS BEEN DRAINING ALL NIGHT.
--- NOTE | 2019-10-01 11:33 | NUR ---
PAGED MD REED RE: LEFT EYE DROOPING. AWAITING CALL BACK
--- NOTE | 2019-10-01 12:15 | NUR ---
RT NOTE: WENT TO PTS ROOM TO ASSESS BEDSIDE PULSE OX, HR 62, RR 16, SPO2 100% ON RA. PT AWAKE AND ALERT. WILL CONTINUE TO MONITOR PT.
[2019-10-01] MEDS: IRON SUCROSE COMPLEX 200 MG in SODIUM CHL 0.9% 100 ML IV SCH (12:30)
[2019-10-01 13:00] VITALS: BP 161/79
[2019-10-01 17:00] VITALS: BP 136/69
[2019-10-01] MEDS: ATORVASTATIN 20 MG TAB PO SCH (17:56)
--- NOTE | 2019-10-01 19:00 | NUR ---
OPENING NOTE Received report from day shift RN. Patient is A&O X's 4 with no s/s of distress and reports no pain. Patient has some slurred speech. upper and lower extremities strength are strong and equal. Patient demonstrated some right arm ataxia. Patient reports feeling some mild weakness in right leg when walking. Educated patient to use call light when getting up and when in need of assistance. Patient verbalized understanding. Bed is in lowest/locked position with side rails up X's 2 and call light is within reach of patient. Commode is at bedside. Will continue care.
[2019-10-01 22:00] VITALS: BP 144/67
--- NOTE | 2019-10-01 22:00 | NUR ---
PATIENT TO BE NPO AFTER MIDNIGHT Educated patient that MD wants patient to be NPO after midnight in case they are able to perform the URIEL tomorrow. Patient verbalized understanding. Will continue care.
--- NOTE | 2019-10-01 22:47 | NUR ---
PT SEEN FOR NOC CPAP. PT DENIES EVER USING CPAP, NEED FOR CPAP, OR DESIRE FOR CPAP. SPO2 100% ON RA, HR 71. PT DENIES ANY RESPIRATORY DISTRESS. NO DISTRESS NOTED.
[2019-10-02 05:00] VITALS: BP 145/77
[2019-10-02] MEDS: INSULIN LANTUS (GLARGINE) 1 /0.01ml (100units/ml) SC SCH ×2 (06:35→21:42)
[2019-10-02] MEDS: ACCU-CHEK COMFORT CURVE STRIP VI SCH ×4 (06:35→21:42)
[2019-10-02] MEDS: InsuLIN REG 1unit/0.01ml Soln (100units/ml) SC SCH ×4 (06:35→21:41)
--- NOTE | 2019-10-02 07:10 | NUR ---
OPENING SHIFT NOTE: PATIENT RESTING IN BED. BED IN LOWEST LOCKED POSITION, UPDATE PATIENT ON PLAN OF CARE. CALL LIGHT PLACED WITHIN REACH. FALL PRECAUTIONS IN PLACE, PATIENT VERBALIZED UNDERSTANDING. RESPIRATIONS EVEN AND UNLABORED. WILL CONTINUE TO MONITOR.
--- NOTE | 2019-10-02 07:14 | NUR ---
END OF SHIFT NOTE Gave report to day shift RN. Patient is A&O X's 4 with no s/s of distress. Educated patient to notify RN if he feels like his blood sugar is dropping. educated patient on the s/s of hypoglycemia. Patient verbalized understanding. RN aware of high blood sugar this morning and insulin was given. Will endorse care.
[2019-10-02 08:38] VITALS: BP 136/66
[2019-10-02] MEDS: amLODIPine BESYLATE 5 MG TAB PO SCH (09:31)
[2019-10-02] MEDS: CARVEDILOL 3.125 MG TAB PO SCH ×2 (09:31→21:42)
[2019-10-02] MEDS: FAMOTIDINE 20 MG TAB PO SCH (09:32)
[2019-10-02] MEDS: PANTOPRAZOLE 40 MG TAB PO SCH ×2 (09:32→21:43)
--- NOTE | 2019-10-02 12:40 | NUR ---
Nutrition Assessment Notes please see attached link for complete assessment Est. Needs based on BW (58 kg): 2772-1806 kcal (25-30 kcal/kgBW), 46-58 gms pro (0.8-1.0 gms/kgBW r/t elev RFT ckd). Will continue to monitor pertinent labs and reassess nutrient need prn Addendum: 10/02/19 at [address] Amended: Links added.
[2019-10-02] MEDS ORDERED: PRED1SUS31 OP ×2 (12:41)
[2019-10-02] MEDS: CLOPIDOGREL BISULFATE 75 MG TAB PO SCH (12:44)
[2019-10-02] MEDS: ASPirin 81 mg TAB PO SCH (12:44)
[2019-10-02 13:00] VITALS: BP 149/74
[2019-10-02] MEDS: SODIUM FERR GLUC 62.5MG/5ML 125 MG in SODIUM CHL 0.9% 100 ML IV SCH (14:29)
[2019-10-02 15:31] LABS: Hematocrit 27.5 % (41.0-53.0); Hemoglobin 8.9 g/dL (13.5-17.5)
[2019-10-02 17:00] VITALS: BP 139/60
[2019-10-02] MEDS: ATORVASTATIN 20 MG TAB PO SCH (17:30)
[2019-10-02] MEDS: prednisoLONE ACETATE 1% OPTH SUSP 5ML LEFTEYE SCH ×2 (17:43→21:42)
[2019-10-02] MEDS ORDERED: ATOR20TA50 PO ×2 (18:17)
[2019-10-02] MEDS ORDERED: PANT40T PO ×2 (18:17)
--- NOTE | 2019-10-02 19:00 | NUR ---
OPENING NOTE Received report from day shift RN. Patient is A&O X's 4 with no s/s of distress and reports no pain. Educated patient on POC and to use call light when in need of assistance. Patient verbalized understanding. Bed is in lowest/locked position with side rails up X's 2 and call light is within reach of patient. Will continue care.
[2019-10-02 22:00] VITALS: BP 145/68
--- NOTE | 2019-10-03 04:48 | NUR ---
BLOOD SUGAR Blood sugar at 44. Patient A&O X's 4 with no s/s of distress. Patient reported feeling "a little weird." Provided patient with juice and crackers. Patient reported feeling much better. Rechecked blood sugar and it was at 83.
[2019-10-03 05:00] VITALS: BP 160/75
[2019-10-03] MEDS: InsuLIN REG 1unit/0.01ml Soln (100units/ml) SC SCH ×3 (06:27→17:00)
[2019-10-03] MEDS: prednisoLONE ACETATE 1% OPTH SUSP 5ML LEFTEYE SCH ×3 (06:27→17:55)
[2019-10-03] MEDS: ACCU-CHEK COMFORT CURVE STRIP VI SCH ×3 (06:29→17:00)
[2019-10-03] MEDS: INSULIN LANTUS (GLARGINE) 1 /0.01ml (100units/ml) SC SCH (06:29)
--- NOTE | 2019-10-03 08:00 | NUR ---
Received pt resting in bed, call light with in reach, no pain or distress noted at this time, will continue to monitor pt.
[2019-10-03 08:27] LABS: Hematocrit 27.1 % (41.0-53.0)
[2019-10-03 09:00] VITALS: BP 156/70
[2019-10-03] MEDS: ASPirin 81 mg TAB PO SCH (09:41)
[2019-10-03] MEDS: PANTOPRAZOLE 40 MG TAB PO SCH (09:41)
[2019-10-03] MEDS: LACTULOSE 20Gm/30ML SOLN PO PRN (09:41)
[2019-10-03] MEDS: amLODIPine BESYLATE 5 MG TAB PO SCH (09:42)
[2019-10-03] MEDS: CLOPIDOGREL BISULFATE 75 MG TAB PO SCH (09:42)
[2019-10-03] MEDS: FAMOTIDINE 20 MG TAB PO SCH (09:42)
[2019-10-03] MEDS: CARVEDILOL 3.125 MG TAB PO SCH (09:43)
--- NOTE | 2019-10-03 12:35 | NUR ---
PAGED DR. LUO TO INFORM FOR PT'S HIGH BLOOD SUGAR OF 489 AND 504, AWAITING CALL BACK.
[2019-10-03] MEDS: SODIUM FERR GLUC 62.5MG/5ML 125 MG in SODIUM CHL 0.9% 100 ML IV SCH (12:38)
[2019-10-03 13:00] VITALS: BP 163/73
[2019-10-03] MEDS ORDERED: INSULIN LISPRO (HUMAN) 100 UNITS/ML ML SC ONE (13:15)
--- NOTE | 2019-10-03 13:20 | NUR ---
DR. LUO AT UNIT, DOCTOR INFORMED OF PT'S HIGH BLOOD SUGAR 489 AND 504. DOCTOR INFORMED THAT 15 UNIT OF REGULAR INSULIN AND ORDERS RECEIVED TO GIVE 5 UNITS OF HUMOLOG.
--- NOTE | 2019-10-03 13:49 | NUR ---
ORDERS RECEIVED PER DR. LUO TO OK TO D/C PT, DOCTOR INFORMED THAT PT WAS NOT GIVEN THE 0700 REGULAR INSULIN DOSE.
[2019-10-03 13:54] VITALS: BP 163/73
--- NOTE | 2019-10-03 15:16 | NUR ---
Blood sugar recheck is 350, as per Dr. Silas mike to d/c pt.
--- NOTE | 2019-10-03 15:25 | NUR ---
Called and spoke to Nely / correctional counselor/case manager, informed of d/c order and order for home health to resume home health services, as per Nely faxed information, H&P, PT note, last progress noted, order, med list, and face sheet to [phone] to [facility] to resume services, pt and pt's sushil Riggs informed.
[2019-10-03] MEDS ORDERED: INFLUENZA QUAD 2019-2020 0.5ml SYRG IM ONE (15:45)
[2019-10-03 17:00] VITALS: BP 148/72
--- NOTE | 2019-10-03 17:35 | NUR ---
Discharge instructions given as ordered. Encourage to follow up with PMD and retail sales representative as instructed. All questions and concerns addressed. Patient and pt's sushil Riggs verbalized understanding. Medication reconciliation form completed and copy given to patient. Home medications held in Pharmacy returned to patient, and needed vaccines given. IV removed with catheter intact, pressure dressing applied. Telemetry unit returned to ICU.
--- NOTE | 2019-10-03 17:40 | NUR ---
Patient taken to vehicle via wheelchair with all personal belongings, accompanied by staff and family member. No distress noted at time of departure.
[2019-10-03] MEDS: ATORVASTATIN 20 MG TAB PO SCH (17:55)
--- NOTE | 2019-10-04 14:04 | NUR ---
Discharge planning per consult, patient has orders to dc home and resume with home health. Patient was on services with [facility]. Referral faxed, placed a follow up call, spoke with Soraya and was advised that they will accept this patient onto return services and start of care will be within 24-48 hours upon discharge. Advised patient is discharging as of 10.03.19; she verbalized understanding. Nurse Whittington was advised of dc plan. Addendum: 10/04/19 at 1409 by LORRAINE SETH Amended: Links added. Addendum: 10/05/19 at 1058 by LORRAINE SETH After further review from [facility], it was determined that patient was on services with [facility]. Referral was sent to [facility], received a follow up call from Bertin and was advised that they will resume services with the patient and start of care will be on or 10.06.19.
== END 2019-10-03 17:40 | disposition home health service (06) | DRG 64 ==
LOC: ER 14:01 → TELE 14:02 → TELE-CENTR 18:00
PROVIDERS: ADMIT Nurse Practitioner Acute Care; ATTEND Internal Medicine Nephrology
PROC: 30233N1 Transfusion of Nonautologous Red Blood Cells into Peripheral Vein, Percutaneous Approach (ICD-10-PCS; principal; 2019-09-29)
DX: I63.9 Cerebral infarction, unspecified (principal); N17.0 Acute kidney failure with tubular necrosis; C90.00 Multiple myeloma not having achieved remission; D62 Acute posthemorrhagic anemia; G81.91 Hemiplegia, unspecified affecting right dominant side; N18.4 Chronic kidney disease, stage 4 (severe); I16.1 Hypertensive emergency; E11.649 Type 2 diabetes mellitus with hypoglycemia without coma; E11.22 Type 2 diabetes mellitus with diabetic chronic kidney disease; D63.8 Anemia in other chronic diseases classified elsewhere; E11.65 Type 2 diabetes mellitus with hyperglycemia; E78.5 Hyperlipidemia, unspecified; F32.9 Major depressive disorder, single episode, unspecified; G62.9 Polyneuropathy, unspecified; I25.10 Atherosclerotic heart disease of native coronary artery without angina pectoris; I67.2 Cerebral atherosclerosis; J44.9 Chronic obstructive pulmonary disease, unspecified; Z95.5 Presence of coronary angioplasty implant and graft; I50.9 Heart failure, unspecified; D50.9 Iron deficiency anemia, unspecified; D63.1 Anemia in chronic kidney disease; I12.9 Hypertensive chronic kidney disease with stage 1 through stage 4 chronic kidney disease, or unspecified chronic kidney disease; Z83.3 Family history of diabetes mellitus; Z82.49 Family history of ischemic heart disease and other diseases of the circulatory system
CPT/HCPCS: 36415; 70450; 70551; 71045; 77074; 80048; 80053; 80061; 81001; 82728; 82962; 83036; 83540; 83550; 83880; 84484; 85014; 85018; 85025; 85610; 85730; 86850; 86900; 86901; 86920; 93005; 93306; 93886; 94762; 97116; 97530; G0378; J1756; J1815

== ENCOUNTER 2019-12-07 13:12 | Emergency (ER) | payer MEDICARE, OTHER ==
[~2019-12-07] VITALS: Ht 167.6 cm; Wt 59.0 kg
[~2019-12-07 13:12] MED LIST changes: +ATOR20TA50 PO; +PRED1SUS31 OP; -SUCR1TAB PO
[2019-12-07 16:16] LABS: Basophils # (auto) 0.1 uL; Basophils % (auto) 1.1 % (0.0-2.0); Eosinophils # (auto) 0.1 uL; Eosinophils % (auto) 0.8 % (0.0-7.0); Hematocrit 30.7 % (41.0-53.0); Hemoglobin 10.4 g/dL (13.5-17.5); Lymphocytes # (auto) 0.7 uL; Mean Corpuscular Hemoglobin 30.9 pg (28.0-32.0); Mean Corpuscular Hgb Conc. 33.9 g/dL (32.0-36.0); Mean Corpuscular Volume 91.1 fL (80.0-100.0); Monocytes # (auto) 0.4 uL; Monocytes % (auto) 4.6 % (0.0-12.0); Neutrophils # (auto) 8.2 uL; Neutrophils % (auto) 86.5 % (37.0-80.0); Platelet Count (auto) 348 10^3/uL (140-450); Red Blood Cells 3.37 10^6/uL (4.5-5.90); Red Cell Distribution Width 15.6 % (11.8-14.3); White Blood Cell 9.4 10^3/uL (4.4-10.8)
[2019-12-07 16:31] LABS: Albumin 2.9 g/dL (3.4-5.0); Calcium 8.7 mg/dL (8.5-10.1); Potassium 4.3 mmol/L (3.5-5.1)
[2019-12-07 16:37] LABS: BUN/Creatinine Ratio 15.2; Bilirubin, Total 0.6 mg/dL (0.2-1.0); Total Protein 6.6 g/dL (6.4-8.2)
[2019-12-07] MEDS ORDERED: DEXTROSE (50%) 50ML SYRG IV PRN (23:15)
[2019-12-08] MEDS ORDERED: InsuLIN REG 1unit/0.01ml Soln (100units/ml) SC SCH
[2019-12-08] MEDS ORDERED: ACCU-CHEK COMFORT CURVE STRIP VI SCH
[2019-12-08] MEDS ORDERED: ONDANSETRON HCL 4 MG/2 ML VIAL IV PRN (00:30)
[2019-12-08] MEDS ORDERED: ACETAMINOPHEN 325 MG TAB PO PRN (00:30)
[2019-12-08] MEDS ORDERED: TEMAZEPAM 15 MG CAP PO PRN (00:30)
[2019-12-08 01:00] VITALS: BP 129/48
[2019-12-08] MEDS ORDERED: PANTOPRAZOLE 40 MG TAB PO SCH (06:00)
[2019-12-08] MEDS ORDERED: FERROUS SULFATE 325 MG TAB PO SCH (08:00)
[2019-12-08] MEDS ORDERED: amLODIPine BESYLATE 5 MG TAB PO SCH (10:00)
[2019-12-08] MEDS ORDERED: CARVEDILOL 3.125 MG TAB PO SCH (10:00)
[2019-12-08] MEDS ORDERED: CLOPIDOGREL BISULFATE 75 MG TAB PO SCH (10:00)
[2019-12-08] MEDS ORDERED: ATORVASTATIN 20 MG TAB PO SCH (22:00)
== END 2019-12-08 01:50 | disposition home or self-care (01) ==
LOC: ER 13:18
DX: E11.65 Type 2 diabetes mellitus with hyperglycemia (principal); E86.0 Dehydration; I13.0 Hypertensive heart and chronic kidney disease with heart failure and stage 1 through stage 4 chronic kidney disease, or unspecified chronic kidney disease; E11.22 Type 2 diabetes mellitus with diabetic chronic kidney disease; N18.9 Chronic kidney disease, unspecified; I50.9 Heart failure, unspecified; K21.9 Gastro-esophageal reflux disease without esophagitis; R90.82 White matter disease, unspecified; E78.5 Hyperlipidemia, unspecified; F17.210 Nicotine dependence, cigarettes, uncomplicated; I67.2 Cerebral atherosclerosis; Z79.899 Other long term (current) drug therapy
CPT/HCPCS: 36415; 70450; 71045; 80053; 82962; 85025

== ENCOUNTER → 2020-01-15 | Outpatient (CLI) | payer MEDICARE, OTHER ==
[~2020-01-15] MED LIST changes: -ASPI81CH43 PO; -ATOR20TA PO; +INSLANTI SC; +INSUINJ18 SC; +LOSA-69 PO; +MULT1CHW78 PO; +SENN-62 PO
[2020-01-15 08:43] LABS: Basophils # (auto) 0.1 uL; Eosinophils # (auto) 0.1 uL; Eosinophils % (auto) 1.2 % (0.0-7.0); Hemoglobin 8.3 g/dL (13.5-17.5); Lymphocytes # (auto) 0.7 uL
[2020-01-15 08:46] LABS: Basophils % (auto) 0.7 % (0.0-2.0); Hematocrit 24.8 % (41.0-53.0); Lymphocytes % (auto) 9.4 % (10.0-50.0); Mean Corpuscular Hemoglobin 30.6 pg (28.0-32.0); Mean Corpuscular Hgb Conc. 33.4 g/dL (32.0-36.0); Mean Corpuscular Volume 91.4 fL (80.0-100.0); Monocytes # (auto) 0.3 uL; Monocytes % (auto) 4.4 % (0.0-12.0); Neutrophils # (auto) 6.5 uL; Neutrophils % (auto) 84.3 % (37.0-80.0); Platelet Count (auto) 439 10^3/uL (140-450); Red Blood Cells 2.71 10^6/uL (4.5-5.90); Red Cell Distribution Width 16.1 % (11.8-14.3); White Blood Cell 7.7 10^3/uL (4.4-10.8)
[2020-01-15 09:49] LABS: BUN/Creatinine Ratio 13.6; Calcium 8.6 mg/dL (8.5-10.1); Potassium 4.7 mmol/L (3.5-5.1)
== END | disposition home or self-care (01) ==
LOC: LAB 08:00
PROVIDERS: ATTEND Internal Medicine Nephrology
DX: Z01.818 Encounter for other preprocedural examination (principal); I13.10 Hypertensive heart and chronic kidney disease without heart failure, with stage 1 through stage 4 chronic kidney disease, or unspecified chronic kidney disease; E11.22 Type 2 diabetes mellitus with diabetic chronic kidney disease; N18.3 Chronic kidney disease, stage 3 (moderate)
CPT/HCPCS: 36415; 80048; 82947; 85025

== ENCOUNTER → 2020-04-15 | Outpatient (CLI) | payer MEDICARE, OTHER ==
[2020-04-15 14:08] LABS: Basophils # (auto) 0.1 10 ^3/uL (0-0.2); Basophils % (auto) 1.3 % (0.0-2.0); Eosinophils # (auto) 0.1 10 ^3/uL (0-0.8); Eosinophils % (auto) 2.9 % (0.0-7.0); Hematocrit 26.3 % (41.0-53.0); Hemoglobin 8.6 g/dL (13.5-17.5); Lymphocytes # (auto) 0.6 10 ^3/uL (0.4-5.4); Lymphocytes % (auto) 13.5 % (10.0-50.0); Mean Corpuscular Hemoglobin 29.5 pg (28.0-32.0); Mean Corpuscular Hgb Conc. 32.7 g/dL (32.0-36.0); Mean Corpuscular Volume 90.2 fL (80.0-100.0); Monocytes # (auto) 0.4 10 ^3/uL (0-1.3); Monocytes % (auto) 8.6 % (0.0-12.0); Neutrophils # (auto) 3.5 10 ^3/uL (1.6-8.6); Neutrophils % (auto) 73.7 % (37.0-80.0); Platelet Count (auto) 302 10^3/uL (140-450); Red Blood Cells 2.92 10^6/uL (4.5-5.90); Red Cell Distribution Width 13.5 % (11.8-14.3); White Blood Cell 4.8 10^3/uL (4.4-10.8)
[2020-04-15 14:31] LABS: Albumin 3.3 g/dL (3.4-5.0); Calcium 8.2 mg/dL (8.5-10.1); Potassium 4.2 mmol/L (3.5-5.1)
[2020-04-15 14:35] LABS: BUN/Creatinine Ratio 16.6; Bilirubin, Total 0.2 mg/dL (0.2-1.0); Total Protein 7.1 g/dL (6.4-8.2)
== END | disposition home or self-care (01) ==
LOC: LAB 13:42
PROVIDERS: ATTEND Internal Medicine Nephrology
DX: E11.22 Type 2 diabetes mellitus with diabetic chronic kidney disease (principal); I12.9 Hypertensive chronic kidney disease with stage 1 through stage 4 chronic kidney disease, or unspecified chronic kidney disease; N18.4 Chronic kidney disease, stage 4 (severe); D64.9 Anemia, unspecified
CPT/HCPCS: 36415; 80053; 83036; 85025

== ENCOUNTER → 2020-05-26 | Outpatient (CLI) | payer MEDICARE, OTHER ==
[2020-05-26 14:52] LABS: Basophils # (auto) 0.1 10 ^3/uL (0-0.2); Eosinophils # (auto) 0.2 10 ^3/uL (0-0.8); Hematocrit 25.7 % (41.0-53.0); Lymphocytes # (auto) 0.6 10 ^3/uL (0.4-5.4); Monocytes # (auto) 0.4 10 ^3/uL (0-1.3); Monocytes % (auto) 7.1 % (0.0-12.0); Neutrophils # (auto) 4.7 10 ^3/uL (1.6-8.6)
[2020-05-26 14:55] LABS: Basophils % (auto) 1.7 % (0.0-2.0); Eosinophils % (auto) 2.9 % (0.0-7.0); Hemoglobin 8.5 g/dL (13.5-17.5); Lymphocytes % (auto) 9.7 % (10.0-50.0); Neutrophils % (auto) 78.6 % (37.0-80.0); Platelet Count (auto) 306 10^3/uL (140-450); Red Blood Cells 2.92 10^6/uL (4.5-5.90); Red Cell Distribution Width 13.7 % (11.8-14.3)
[2020-05-26 15:08] LABS: INR 0.96 (0.9-1.15); Partial Thromboplastin Time 29.3 sec (23.64-32.05)
== END | disposition home or self-care (01) ==
LOC: LAB 14:23
PROVIDERS: ATTEND Internal Medicine Nephrology
DX: N18.4 Chronic kidney disease, stage 4 (severe) (principal)
CPT/HCPCS: 36415; 85025; 85610; 85730

== ENCOUNTER → 2020-05-31 | Outpatient (CLI) | payer MEDICARE, OTHER ==
[~2020-05-31] MED LIST changes: +LIDOCAINE 2%HCL (LOCAL ANESTH.) INJ 20ML MDV ONE; +MIDAZOLAM HCL 5 MG/ML-1ML VIAL ONE; +fentaNYL CITRATE 100 MCG/2 ML VL ONE
== END | disposition home or self-care (01) ==
LOC: CT 08:36
PROVIDERS: ATTEND Internal Medicine Nephrology
DX: D47.2 Monoclonal gammopathy (principal); I50.9 Heart failure, unspecified; F32.9 Major depressive disorder, single episode, unspecified; Z98.890 Other specified postprocedural states; Z79.899 Other long term (current) drug therapy
CPT/HCPCS: 50200; 74150; 77012; 88305; J2250; J3010; 10022; 99152

== ENCOUNTER 2020-08-30 16:52 | Inpatient (IN) | payer MEDICARE, OTHER ==
[~2020-08-30] VITALS: Ht 167.6 cm; Wt 54.0 kg
[~2020-08-30 16:52] MED LIST changes: -LIDOCAINE 2%HCL (LOCAL ANESTH.) INJ 20ML MDV ONE; -MIDAZOLAM HCL 5 MG/ML-1ML VIAL ONE; -fentaNYL CITRATE 100 MCG/2 ML VL ONE
[2020-08-30] MEDS ORDERED: SODIUM CHLORIDE 0.9% 1,000 ML IV ONE (18:45)
[2020-08-30 18:56] LABS: Albumin 3.7 g/dL (3.4-5.0); Potassium 5.1 mmol/L (3.5-5.1)
[2020-08-30 19:03] LABS: BUN/Creatinine Ratio 13.2; Bilirubin, Total 0.3 mg/dL (0.2-1.0); Total Protein 7.5 g/dL (6.4-8.2)
[2020-08-30 19:12] LABS: Basophils # (auto) 0 10 ^3/uL (0-0.2); Basophils % (auto) 0.7 % (0.0-2.0); Eosinophils # (auto) 0.1 10 ^3/uL (0-0.8); Eosinophils % (auto) 0.9 % (0.0-7.0); Hematocrit 28.5 % (41.0-53.0); Hemoglobin 9.5 g/dL (13.5-17.5); Lymphocytes # (auto) 0.6 10 ^3/uL (0.4-5.4); Lymphocytes % (auto) 8.2 % (10.0-50.0); Mean Corpuscular Hemoglobin 29.5 pg (28.0-32.0); Mean Corpuscular Hgb Conc. 33.5 g/dL (32.0-36.0); Mean Corpuscular Volume 88.3 fL (80.0-100.0); Monocytes # (auto) 0.5 10 ^3/uL (0-1.3); Monocytes % (auto) 7.1 % (0.0-12.0); Neutrophils # (auto) 5.9 10 ^3/uL (1.6-8.6); Neutrophils % (auto) 83.1 % (37.0-80.0); Platelet Count (auto) 313 10^3/uL (140-450); Red Blood Cells 3.22 10^6/uL (4.5-5.90); Red Cell Distribution Width 14.8 % (11.8-14.3); White Blood Cell 7.1 10^3/uL (4.4-10.8)
[2020-08-30 20:26] LABS: Urine Bacteria FEW /hpf (None Seen); Urine Blood Negative /uL (Negative); Urine Hyaline Cast MOD /lpf (0 - 2); Urine Specific Gravity 1.011 (1.001-1.035); Urine WBC 1 /hpf (0 - 3)
[2020-08-30] MEDS ORDERED: TEMAZEPAM 15 MG CAP PO PRN (21:45)
[2020-08-30] MEDS ORDERED: SODIUM CHLORIDE 0.9% 1,000 ML IV SCH (21:45)
[2020-08-30] MEDS ORDERED: ONDANSETRON HCL 4 MG/2 ML VIAL IV PRN (21:45)
[2020-08-30] MEDS ORDERED: ACETAMINOPHEN 325 MG TAB PO PRN (21:45)
[2020-08-30] MEDS ORDERED: DEXTROSE (50%) 50ML SYRG IV PRN (21:45)
[2020-08-30] MEDS: ATORVASTATIN 20 MG TAB PO SCH (22:36)
[2020-08-30] MEDS: CARVEDILOL 3.125 MG TAB PO SCH (22:37)
[2020-08-31 01:22] VITALS: BP 131/63
--- NOTE | 2020-08-31 01:58 | NUR ---
Provided update to primary RN with admission. notified rn teaching/skin assessments/ physical/ vte assesment needs to be completed. patient is resting in bed with no signs of distress, and bed alarm on.
[2020-08-31] MEDS: InsuLIN REG 1unit/0.01ml Soln (100units/ml) SC SCH ×4 (02:00→22:12)
[2020-08-31 05:00] VITALS: BP 110/50
--- NOTE | 2020-08-31 05:42 | NUR ---
Patient's blood glucose this morning was 63. Gave juice with sugar packets. Will recheck
--- NOTE | 2020-08-31 05:43 | NUR ---
Noted teary right eye, and right eye a little squinty than the other. Asked patient for any symptoms (itchiness, pain, etc.), these denied. Stated his doctor removed a "lens" out of it couple of weeks ago. and they plan replace it in a later date. Patient unable to see well at the moment and will need most assistance when getting out of bed. Says he benefits from ambu-devices too, at home.
[2020-08-31] MEDS: ACCU-CHEK COMFORT CURVE STRIP VI SCH ×4 (06:00→22:09)
[2020-08-31 06:08] LABS: Basophils # (auto) 0 10 ^3/uL (0-0.2); Basophils % (auto) 0.6 % (0.0-2.0); Eosinophils # (auto) 0.1 10 ^3/uL (0-0.8); Eosinophils % (auto) 1.2 % (0.0-7.0); Hematocrit 27.6 % (41.0-53.0); Hemoglobin 9.3 g/dL (13.5-17.5); Lymphocytes # (auto) 0.9 10 ^3/uL (0.4-5.4); Lymphocytes % (auto) 12.6 % (10.0-50.0); Mean Corpuscular Hemoglobin 28.9 pg (28.0-32.0); Mean Corpuscular Hgb Conc. 33.6 g/dL (32.0-36.0); Monocytes # (auto) 0.7 10 ^3/uL (0-1.3); Neutrophils # (auto) 5.3 10 ^3/uL (1.6-8.6); Neutrophils % (auto) 75.6 % (37.0-80.0); Platelet Count (auto) 304 10^3/uL (140-450); Red Blood Cells 3.21 10^6/uL (4.5-5.90); Red Cell Distribution Width 14.4 % (11.8-14.3)
[2020-08-31 06:23] LABS: BUN/Creatinine Ratio 14.6; Calcium 8.3 mg/dL (8.5-10.1)
[2020-08-31 09:00] VITALS: BP 124/65
[2020-08-31] MEDS ORDERED: LOSARTAN POTASSIUM 50 MG TAB PO SCH (10:00)
[2020-08-31] MEDS ORDERED: CLOPIDOGREL BISULFATE 75 MG TAB PO SCH (10:00)
[2020-08-31] MEDS: amLODIPine BESYLATE 5 MG TAB PO SCH (10:30)
[2020-08-31] MEDS: PANTOPRAZOLE 40 MG TAB PO SCH (10:30)
[2020-08-31] MEDS: CARVEDILOL 3.125 MG TAB PO SCH ×2 (10:33→22:00)
--- NOTE | 2020-08-31 11:25 | NUR ---
BLOOD SUGAR: 478 WILL COVER PER SLIDING SCALE--DR. KHOURY PAGED. AWAITING CALL BACK.
[2020-08-31] MEDS ORDERED: SODIUM CHLORIDE 0.9% 1,000 ML IV ONE (11:30)
--- NOTE | 2020-08-31 11:40 | NUR ---
SECOND PAGE TO MADE. WILL ADMINISTER CURRENT SCALE DOSE
--- NOTE | 2020-08-31 12:20 | NUR ---
PAGED. CALLED BACK RECEIVED ORDERS.
[2020-08-31] MEDS ORDERED: DEXTROSE (50%) 50ML SYRG IV PRN (12:30)
[2020-08-31] MEDS ORDERED: InsuLIN REG 1unit/0.01ml Soln (100units/ml) IV ONE (12:30)
--- NOTE | 2020-08-31 12:35 | NUR ---
ORDERS INPUT. PT ASYMPTOMATIC, DENIES DISCOMFORT. WILL ADMINISTER MEDICATIONS PER ORDER. CALL LIGHT WITHIN REACH.
[2020-08-31 13:00] VITALS: BP 128/68
[2020-08-31 17:00] VITALS: BP 116/60
--- NOTE | 2020-08-31 17:33 | NUR ---
BLOOD SUGAR 461. PT AWAKE, ALERT, ORIENTEDx4, ASYMPTOMATIC. CALLED HOSPITALIST. ORDERS RECEIVED. CALL LIGHT WITHIN REACH. WILL CONTINUE TO MONITOR.
[2020-08-31] MEDS ORDERED: InsuLIN REG 1unit/0.01ml Soln (100units/ml) SC SCH (18:00)
[2020-08-31] MEDS ORDERED: ACCU-CHEK COMFORT CURVE STRIP VI SCH (18:00)
[2020-08-31 22:00] VITALS: BP 111/57
[2020-08-31] MEDS ORDERED: INSULIN LANTUS (GLARGINE) 1 /0.01ml (100units/ml) SC SCH (22:00)
[2020-08-31] MEDS: ATORVASTATIN 20 MG TAB PO SCH (22:08)
[2020-09-01] MEDS: ACCU-CHEK COMFORT CURVE STRIP VI SCH ×5 (02:00→18:15)
[2020-09-01] MEDS: InsuLIN REG 1unit/0.01ml Soln (100units/ml) SC SCH ×5 (02:00→18:15)
[2020-09-01 05:00] VITALS: BP 133/68
[2020-09-01 07:12] LABS: BUN/Creatinine Ratio 13.7; Calcium 8.3 mg/dL (8.5-10.1)
[2020-09-01] MEDS: amLODIPine BESYLATE 5 MG TAB PO SCH (11:24)
[2020-09-01] MEDS: PANTOPRAZOLE 40 MG TAB PO SCH (11:24)
[2020-09-01] MEDS: CARVEDILOL 3.125 MG TAB PO SCH (11:25)
[2020-09-01] MEDS ORDERED: SODI650T PO (15:52)
--- NOTE | 2020-09-01 16:06 | NUR ---
Assessment Patient is a 65-year-old male who is alert and oriented. Prior to admission patient lived home with family and functioned with assistance. Per patient his niece Keely who is also his caregiver helps him with his ADL's. patient has a walker and cane for home use. Per patient he will return home to his prior living arrangements post discharge and family will transport him home. Advised patient there is a social service consult for home health. Per patient he is on service with [facility] and would like to resume service with agency upon d/c day. Informed patient he has a right to participate in all discharge planning. Patient verbalized understanding and agreed to discharge plan. Faxed clinical information to [facility]. Per Roz with [facility] they will resume service for patient upon d/c day. Informed ALDEN ortiz. Addendum: 09/01/20 at 1615 by ANITA HINTON Amended: Links added.
[2020-09-01 16:38] VITALS: BP 127/62
[2020-09-01 17:14] VITALS: BP 139/70
--- NOTE | 2020-09-01 18:47 | NUR ---
DISCHARGE INSTRUCTIONS PROVIDED TO PT AND DAUGHTER. BOTH VERBALIZED UNDERSTANDING FOR PRESCRIPTION ORDERS, CONTINUATION OF HOME MEDICATIONS AND FOLLOW UP APPOINTMENT WITH PRIMARY MD. EDUCATIONAL MATERIAL PROVIDED ALL QUESTIONS AND CONCERNS ADDRESSED. IV CATHETER DC CATHETER INTACT, NO PHLEBITIS. PT SAFELY ESCORTED OUT OF UNIT VIA WHEELCHAIR. NO S/S OF DISTRESS. Addendum: 09/01/20 at 1855 by Usama Calzada RN INSTRUCTIONS PROVIDED TO [employer] (VERONICA)
== END 2020-09-01 19:00 | disposition home health service (06) | DRG 637 ==
LOC: ER 16:52 → OVERFLOW 16:53 → WEST WING 23:51
PROVIDERS: ADMIT Nurse Practitioner; ATTEND Internal Medicine Nephrology
DX: E11.65 Type 2 diabetes mellitus with hyperglycemia (principal); N17.0 Acute kidney failure with tubular necrosis; I13.0 Hypertensive heart and chronic kidney disease with heart failure and stage 1 through stage 4 chronic kidney disease, or unspecified chronic kidney disease; N18.4 Chronic kidney disease, stage 4 (severe); E11.22 Type 2 diabetes mellitus with diabetic chronic kidney disease; F17.210 Nicotine dependence, cigarettes, uncomplicated; D63.1 Anemia in chronic kidney disease; I25.10 Atherosclerotic heart disease of native coronary artery without angina pectoris; K21.9 Gastro-esophageal reflux disease without esophagitis; Z83.3 Family history of diabetes mellitus; Z82.49 Family history of ischemic heart disease and other diseases of the circulatory system; E11.21 Type 2 diabetes mellitus with diabetic nephropathy; Z91.19 Patient's noncompliance with other medical treatment and regimen; Z86.73 Personal history of transient ischemic attack (TIA), and cerebral infarction without residual deficits; I50.9 Heart failure, unspecified; F12.90 Cannabis use, unspecified, uncomplicated; Z79.4 Long term (current) use of insulin; Z91.14 Patient's other noncompliance with medication regimen; E78.5 Hyperlipidemia, unspecified
CPT/HCPCS: 36415; 80048; 80053; 81001; 82010; 82962; 85025; 87081; 96360; 96361; G0378; J1815

== ENCOUNTER → 2020-09-22 | Outpatient (CLI) | payer MEDICARE, OTHER ==
[~2020-09-22] MED LIST changes: -CLOP75TA41 PO; -FERR-7 PO; -INSLANTI SC; -LOSA-69 PO; -MULT1CHW78 PO; -SENN-62 PO; +SODI650T PO
[2020-09-22 11:55] LABS: Eosinophils # (auto) 0.1 10 ^3/uL (0-0.8); Lymphocytes # (auto) 0.6 10 ^3/uL (0.4-5.4); Monocytes # (auto) 0.4 10 ^3/uL (0-1.3); Neutrophils # (auto) 4.2 10 ^3/uL (1.6-8.6); White Blood Cell 5.4 10^3/uL (4.4-10.8)
[2020-09-22 11:59] LABS: Basophils # (auto) 0 10 ^3/uL (0-0.2); Basophils % (auto) 0.8 % (0.0-2.0); Eosinophils % (auto) 2.3 % (0.0-7.0); Hematocrit 22.7 % (41.0-53.0); Hemoglobin 7.6 g/dL (13.5-17.5); Lymphocytes % (auto) 11.4 % (10.0-50.0); Mean Corpuscular Hemoglobin 29.5 pg (28.0-32.0); Mean Corpuscular Hgb Conc. 33.6 g/dL (32.0-36.0); Mean Corpuscular Volume 87.8 fL (80.0-100.0); Monocytes % (auto) 7.3 % (0.0-12.0); Neutrophils % (auto) 78.2 % (37.0-80.0); Platelet Count (auto) 273 10^3/uL (140-450); Red Blood Cells 2.59 10^6/uL (4.5-5.90); Red Cell Distribution Width 14.5 % (11.8-14.3)
[2020-09-22 12:15] LABS: Albumin 3.2 g/dL (3.4-5.0); Calcium 8.2 mg/dL (8.5-10.1); Potassium 4.3 mmol/L (3.5-5.1)
[2020-09-22 12:19] LABS: BUN/Creatinine Ratio 18.9; Bilirubin, Total 0.2 mg/dL (0.2-1.0); Total Protein 6.5 g/dL (6.4-8.2)
== END | disposition home or self-care (01) ==
LOC: LAB 11:36
PROVIDERS: ATTEND Internal Medicine Nephrology
DX: E11.22 Type 2 diabetes mellitus with diabetic chronic kidney disease (principal); I12.9 Hypertensive chronic kidney disease with stage 1 through stage 4 chronic kidney disease, or unspecified chronic kidney disease; N18.4 Chronic kidney disease, stage 4 (severe)
CPT/HCPCS: 36415; 80053; 85025

== ENCOUNTER 2020-12-30 17:14 | Inpatient (IN) | payer MEDICARE, OTHER ==
[~2020-12-30] VITALS: Ht 170.2 cm; Wt 54.0 kg
[2020-12-30] MEDS ORDERED: InsuLIN REG 1unit/0.01ml Soln (100units/ml) IV ONE (18:00)
[2020-12-30] MEDS ORDERED: SODIUM CHLORIDE 0.9% 500 ML IV ONE (18:00)
[2020-12-30 19:00] LABS: Basophils # (auto) 0.1 10 ^3/uL (0-0.2); Lymphocytes # (auto) 0.5 10 ^3/uL (0.4-5.4); Monocytes # (auto) 0.6 10 ^3/uL (0-1.3)
[2020-12-30 19:01] LABS: Basophils % (auto) 1.3 % (0.0-2.0); Eosinophils # (auto) 0 10 ^3/uL (0-0.8); Eosinophils % (auto) 0.6 % (0.0-7.0); Hematocrit 13.8 % (41.0-53.0); Lymphocytes % (auto) 6.1 % (10.0-50.0); Mean Corpuscular Hemoglobin 21.9 pg (28.0-32.0); Mean Corpuscular Hgb Conc. 30.3 g/dL (32.0-36.0); Mean Corpuscular Volume 72.4 fL (80.0-100.0); Monocytes % (auto) 7.1 % (0.0-12.0); Neutrophils # (auto) 6.6 10 ^3/uL (1.6-8.6); Neutrophils % (auto) 84.9 % (37.0-80.0); Nucleated Red Blood Cells % 0.2 %; Platelet Count (auto) 236 10^3/uL (140-450); Red Cell Distribution Width 17.9 % (11.8-14.3); White Blood Cell 7.8 10^3/uL (4.4-10.8)
[2020-12-30 19:21] LABS: Albumin 3.3 g/dL (3.4-5.0); Anion Gap 8 (5-15); Blood Urea Nitrogen 67 mg/dL (7-18); Calcium 8.1 mg/dL (8.5-10.1); Carbon Dioxide 22 mmol/L (21-32); Chloride 102 mmol/L (98-107); Magnesium 3.5 mg/dL (1.6-2.6); Potassium 4.9 mmol/L (3.5-5.1); Sodium 132 mmol/L (136-145)
[2020-12-30 19:23] LABS: Hemoglobin 4.2 g/dL (13.5-17.5)
[2020-12-30 19:30] LABS: Alanine Aminotransferase 14 U/L (16-61); Alkaline Phosphatase 96 U/L (45-117); Aspartate Aminotransferase 9 U/L (15-37); Bilirubin, Total 0.2 mg/dL (0.2-1.0); GFR African American 21 mL/min; GFR Non-African American 17 mL/min; Total Protein 7.4 g/dL (6.4-8.2)
[2020-12-30 19:37] LABS: Glucose 544 mg/dL (74-106)
[2020-12-30] MEDS ORDERED: DEXTROSE (50%) 50ML SYRG IV PRN ×2 (21:15→22:00)
[2020-12-30] MEDS ORDERED: INSULIN LANTUS (GLARGINE) 1 /0.01ml (100units/ml) SC SCH (22:00)
[2020-12-30] MEDS ORDERED: HYDROcodone-ACET 5/325MG TAB PO PRN (22:00)
[2020-12-30] MEDS ORDERED: ONDANSETRON HCL 4 MG/2 ML VIAL IV PRN (22:00)
[2020-12-30] MEDS ORDERED: DOCUSATE SOD 100 MG CAP PO PRN (22:00)
[2020-12-30] MEDS ORDERED: ALBUMIN 5% 50 ML IV ONE (22:00)
[2020-12-30] MEDS ORDERED: NITROGLYCERIN 0.4 MG SL TAB SL PRN (22:00)
[2020-12-30] MEDS ORDERED: SODIUM CHLORIDE 0.9% 1,000 ML IV SCH ×2 (22:00→22:30)
[2020-12-30] MEDS ORDERED: MORPHINE SULF INJ 2 MG/ML SYRINGE 1ML IV PRN (22:00)
[2020-12-30] MEDS ORDERED: ACETAMINOPHEN 325 MG TAB PO PRN (22:00)
[2020-12-30] MEDS: InsuLIN REG 1unit/0.01ml Soln (100units/ml) SC SCH (22:30)
[2020-12-30] MEDS ORDERED: ACCU-CHEK COMFORT CURVE STRIP VI SCH (22:30)
[2020-12-30 22:38] LABS: Basophils # (auto) 0.1 10 ^3/uL (0-0.2); Hematocrit 12.9 % (41.0-53.0); Lymphocytes # (auto) 0.7 10 ^3/uL (0.4-5.4); Mean Corpuscular Hemoglobin 21.9 pg (28.0-32.0); Monocytes # (auto) 0.7 10 ^3/uL (0-1.3); Neutrophils % (auto) 80.1 % (37.0-80.0)
[2020-12-30 22:39] LABS: Eosinophils # (auto) 0 10 ^3/uL (0-0.8); Eosinophils % (auto) 0.7 % (0.0-7.0); Lymphocytes % (auto) 9.1 % (10.0-50.0); Mean Corpuscular Hgb Conc. 30.7 g/dL (32.0-36.0); Mean Corpuscular Volume 71.1 fL (80.0-100.0); Monocytes % (auto) 9.1 % (0.0-12.0); Neutrophils # (auto) 5.9 10 ^3/uL (1.6-8.6); Nucleated Red Blood Cells % 0.2 %; Platelet Count (auto) 223 10^3/uL (140-450); Red Blood Cells 1.82 10^6/uL (4.5-5.90); Red Cell Distribution Width 17.9 % (11.8-14.3); White Blood Cell 7.4 10^3/uL (4.4-10.8)
[2020-12-30 22:56] LABS: Albumin 3.2 g/dL (3.4-5.0); Calcium 8.2 mg/dL (8.5-10.1); Potassium 4.1 mmol/L (3.5-5.1)
[2020-12-30 23:00] LABS: Bilirubin, Total 0.2 mg/dL (0.2-1.0); Total Protein 6.9 g/dL (6.4-8.2)
[2020-12-30] MEDS: FAMOTIDINE (10MG/ML) 2ML VL IV SCH (23:07)
[2020-12-30] MEDS: ASCORBIC ACID 500 MG TAB PO SCH (23:07)
[2020-12-30] MEDS: ACCU-CHEK COMFORT CURVE STRIP VI SCH (23:08)
[2020-12-30 23:45] VITALS: BP 123/56
[2020-12-31] VITALS (10 sets, daily range): BP systolic 102–160; BP diastolic 41–77
[2020-12-31] MEDS ORDERED: InsuLIN REG 1unit/0.01ml Soln (100units/ml) SC SCH
[2020-12-31] MEDS: InsuLIN REG 1unit/0.01ml Soln (100units/ml) SC SCH ×7 (00:58→20:52)
[2020-12-31] MEDS: ACCU-CHEK COMFORT CURVE STRIP VI SCH ×8 (00:58→23:52)
[2020-12-31] MEDS ORDERED: hydrALAZINE HCL 20 MG/ML VL IV PRN (07:00)
[2020-12-31] MEDS: INSULIN LANTUS (GLARGINE) 1 /0.01ml (100units/ml) SC SCH ×2 (07:00→22:23)
[2020-12-31 07:24] LABS: Eosinophils # (auto) 0.1 10 ^3/uL (0-0.8); Lymphocytes # (auto) 0.5 10 ^3/uL (0.4-5.4); Monocytes # (auto) 0.8 10 ^3/uL (0-1.3)
[2020-12-31 07:26] LABS: Basophils # (auto) 0.1 10 ^3/uL (0-0.2); Basophils % (auto) 0.7 % (0.0-2.0); Lymphocytes % (auto) 5.1 % (10.0-50.0); Mean Corpuscular Hemoglobin 25.7 pg (28.0-32.0); Mean Corpuscular Hgb Conc. 32.9 g/dL (32.0-36.0); Mean Corpuscular Volume 77.9 fL (80.0-100.0); Monocytes % (auto) 9.4 % (0.0-12.0); Neutrophils # (auto) 7.5 10 ^3/uL (1.6-8.6); Neutrophils % (auto) 83.8 % (37.0-80.0); Nucleated Red Blood Cells % 0.2 %; Platelet Count (auto) 226 10^3/uL (140-450); Red Blood Cells 2.56 10^6/uL (4.5-5.90); Red Cell Distribution Width 19.9 % (11.8-14.3)
[2020-12-31 07:40] LABS: Hemoglobin 6.6 g/dL (13.5-17.5)
[2020-12-31] MEDS: CALCIUM ACETATE 667 MG CAP PO SCH ×3 (10:09→18:12)
[2020-12-31] MEDS: B-COMPLEX W/ C & FOLIC ACID(NEPHROVITE TAB) PO SCH (10:09)
[2020-12-31] MEDS: ZINC SULFATE 220mg CAP or TAB PO SCH (10:09)
[2020-12-31] MEDS: ASCORBIC ACID 500 MG TAB PO SCH ×2 (10:09→22:14)
[2020-12-31] MEDS ORDERED: CARV12.544 PO (11:21)
[2020-12-31] MEDS ORDERED: HYDR25TA4 PO (11:21)
[2020-12-31 14:02] LABS: Hematocrit 25.1 % (41.0-53.0); Hemoglobin 8.3 g/dL (13.5-17.5)
[2020-12-31 14:19] LABS: INR 0.93 (0.9-1.15)
[2020-12-31] MEDS ORDERED: EZ PAQUE SUSP 12OZ BTL ONE (15:56)
[2020-12-31 17:04] LABS: Urine Bacteria NONE SEEN /hpf (None Seen); Urine Blood Negative /uL (Negative); Urine Specific Gravity 1.012 (1.001-1.035); Urine WBC 1 /hpf (0 - 3)
[2020-12-31 18:13] LABS: Hematocrit 23.7 % (41.0-53.0); Hemoglobin 7.8 g/dL (13.5-17.5)
[2020-12-31] MEDS: FAMOTIDINE (10MG/ML) 2ML VL IV SCH (22:00)
[2020-12-31] MEDS ORDERED: PANTOPRAZOLE 40 MG TAB PO SCH (22:00)
[2020-12-31] MEDS: CARVEDILOL 12.5 MG TAB PO SCH (22:13)
[2020-12-31] MEDS: ATORVASTATIN 20 MG TAB PO SCH (22:13)
[2021-01-01] MEDS: ACCU-CHEK COMFORT CURVE STRIP VI SCH ×5 (04:00→20:00)
[2021-01-01] MEDS: InsuLIN REG 1unit/0.01ml Soln (100units/ml) SC SCH ×6 (04:00→21:25)
[2021-01-01 05:00] VITALS: BP 141/66
[2021-01-01] MEDS: INSULIN LANTUS (GLARGINE) 1 /0.01ml (100units/ml) SC SCH ×2 (06:21→22:54)
[2021-01-01 07:02] LABS: Basophils # (auto) 0.1 10 ^3/uL (0-0.2); Eosinophils # (auto) 0.1 10 ^3/uL (0-0.8); Monocytes # (auto) 0.8 10 ^3/uL (0-1.3); Nucleated Red Blood Cells % 0.2 %
[2021-01-01 07:05] LABS: Basophils % (auto) 0.6 % (0.0-2.0); Eosinophils % (auto) 1.3 % (0.0-7.0); Hematocrit 24.3 % (41.0-53.0); Hemoglobin 8.2 g/dL (13.5-17.5); Lymphocytes % (auto) 10.3 % (10.0-50.0); Mean Corpuscular Hemoglobin 25.8 pg (28.0-32.0); Mean Corpuscular Hgb Conc. 33.8 g/dL (32.0-36.0); Mean Corpuscular Volume 76.2 fL (80.0-100.0); Monocytes % (auto) 8.6 % (0.0-12.0); Neutrophils # (auto) 7.8 10 ^3/uL (1.6-8.6); Neutrophils % (auto) 79.2 % (37.0-80.0); Platelet Count (auto) 291 10^3/uL (140-450); Red Blood Cells 3.18 10^6/uL (4.5-5.90); Red Cell Distribution Width 19.9 % (11.8-14.3); White Blood Cell 9.9 10^3/uL (4.4-10.8)
[2021-01-01 07:22] LABS: Albumin 3.4 g/dL (3.4-5.0); Calcium 8.5 mg/dL (8.5-10.1); Potassium 4.1 mmol/L (3.5-5.1)
[2021-01-01 07:27] LABS: BUN/Creatinine Ratio 17.5; Bilirubin, Total 0.4 mg/dL (0.2-1.0); Total Protein 7.5 g/dL (6.4-8.2)
[2021-01-01 07:49] VITALS: BP 110/47
[2021-01-01] MEDS: CALCIUM ACETATE 667 MG CAP PO SCH ×3 (08:21→17:29)
[2021-01-01] MEDS: CARVEDILOL 12.5 MG TAB PO SCH ×2 (10:00→22:00)
[2021-01-01] MEDS: amLODIPine BESYLATE 5 MG TAB PO SCH (10:00)
[2021-01-01] MEDS: ASCORBIC ACID 500 MG TAB PO SCH ×2 (10:16→22:36)
[2021-01-01] MEDS: ZINC SULFATE 220mg CAP or TAB PO SCH (10:16)
[2021-01-01] MEDS: SODIUM BICARBONATE 650 MG TAB PO SCH (10:16)
[2021-01-01] MEDS: B-COMPLEX W/ C & FOLIC ACID(NEPHROVITE TAB) PO SCH (10:17)
[2021-01-01] MEDS: HCTZ 25 MG TAB PO SCH (10:17)
[2021-01-01 16:00] VITALS: BP 108/47
[2021-01-01 22:00] VITALS: BP 136/66
[2021-01-01] MEDS: FAMOTIDINE (10MG/ML) 2ML VL IV SCH (22:36)
[2021-01-01] MEDS: ATORVASTATIN 20 MG TAB PO SCH (22:36)
[2021-01-02] MEDS: ACCU-CHEK COMFORT CURVE STRIP VI SCH ×7 (00:27→23:44)
[2021-01-02] MEDS: InsuLIN REG 1unit/0.01ml Soln (100units/ml) SC SCH ×7 (04:00→23:45)
[2021-01-02 05:00] VITALS: BP 135/70
[2021-01-02] MEDS: INSULIN LANTUS (GLARGINE) 1 /0.01ml (100units/ml) SC SCH ×2 (06:22→21:55)
[2021-01-02 07:48] LABS: Sodium Urine 83 mmol/L (40-220)
[2021-01-02 07:54] LABS: Creatinine, Urine 47 mg/dL (30.0-125.0)
[2021-01-02 08:00] VITALS: BP 126/59
[2021-01-02 08:00] LABS: Protein, Urine 141.8 mg/dL (0.0-11.9)
[2021-01-02 09:43] LABS: Basophils # (auto) 0.1 10 ^3/uL (0-0.2); Eosinophils # (auto) 0.1 10 ^3/uL (0-0.8); Eosinophils % (auto) 1.7 % (0.0-7.0); Hemoglobin 7.3 g/dL (13.5-17.5); Lymphocytes # (auto) 0.8 10 ^3/uL (0.4-5.4); Monocytes # (auto) 0.7 10 ^3/uL (0-1.3); White Blood Cell 7.7 10^3/uL (4.4-10.8)
[2021-01-02 09:45] LABS: Hematocrit 22.4 % (41.0-53.0); Lymphocytes % (auto) 10.5 % (10.0-50.0); Mean Corpuscular Hgb Conc. 32.4 g/dL (32.0-36.0); Mean Corpuscular Volume 77.2 fL (80.0-100.0); Monocytes % (auto) 8.7 % (0.0-12.0); Neutrophils % (auto) 78.1 % (37.0-80.0); Platelet Count (auto) 246 10^3/uL (140-450)
[2021-01-02 09:47] LABS: Red Cell Distribution Width 20.1 % (11.8-14.3)
[2021-01-02 09:54] LABS: Calcium 8.3 mg/dL (8.5-10.1); Potassium 4.4 mmol/L (3.5-5.1)
[2021-01-02] MEDS: amLODIPine BESYLATE 5 MG TAB PO SCH (10:00)
[2021-01-02] MEDS: CARVEDILOL 12.5 MG TAB PO SCH ×2 (10:11→21:53)
[2021-01-02] MEDS: B-COMPLEX W/ C & FOLIC ACID(NEPHROVITE TAB) PO SCH (10:11)
[2021-01-02] MEDS: ASCORBIC ACID 500 MG TAB PO SCH ×2 (10:12→21:53)
[2021-01-02] MEDS: CALCIUM ACETATE 667 MG CAP PO SCH ×2 (10:12→12:35)
[2021-01-02] MEDS: ZINC SULFATE 220mg CAP or TAB PO SCH (10:12)
[2021-01-02] MEDS: HCTZ 25 MG TAB PO SCH (10:12)
[2021-01-02] MEDS: SODIUM BICARBONATE 650 MG TAB PO SCH (10:12)
[2021-01-02 16:00] VITALS: BP 131/57
[2021-01-02] MEDS: FAMOTIDINE (10MG/ML) 2ML VL IV SCH (21:53)
[2021-01-02] MEDS: ATORVASTATIN 20 MG TAB PO SCH (21:53)
[2021-01-02 22:00] VITALS: BP 139/68
[2021-01-03 04:00] VITALS: BP 135/63
[2021-01-03] MEDS: InsuLIN REG 1unit/0.01ml Soln (100units/ml) SC SCH ×4 (04:00→21:34)
[2021-01-03] MEDS ORDERED: HYDROmorphone HCL 2 MG/ML VL IV ONE (04:00)
[2021-01-03] MEDS: ACCU-CHEK COMFORT CURVE STRIP VI SCH ×4 (04:09→21:32)
[2021-01-03] MEDS: INSULIN LANTUS (GLARGINE) 1 /0.01ml (100units/ml) SC SCH ×2 (06:29→21:33)
[2021-01-03 07:26] LABS: Basophils # (auto) 0.1 10 ^3/uL (0-0.2); Neutrophils # (auto) 7.6 10 ^3/uL (1.6-8.6); Nucleated Red Blood Cells % 0.1 %
[2021-01-03 07:29] LABS: Basophils % (auto) 1.2 % (0.0-2.0); Eosinophils # (auto) 0.2 10 ^3/uL (0-0.8); Eosinophils % (auto) 1.9 % (0.0-7.0); Hematocrit 23.9 % (41.0-53.0); Hemoglobin 7.8 g/dL (13.5-17.5); Lymphocytes # (auto) 0.7 10 ^3/uL (0.4-5.4); Lymphocytes % (auto) 7.1 % (10.0-50.0); Mean Corpuscular Hgb Conc. 32.5 g/dL (32.0-36.0); Mean Corpuscular Volume 76.8 fL (80.0-100.0); Monocytes # (auto) 0.8 10 ^3/uL (0-1.3); Monocytes % (auto) 8.4 % (0.0-12.0); Neutrophils % (auto) 81.4 % (37.0-80.0); Platelet Count (auto) 236 10^3/uL (140-450); Red Blood Cells 3.11 10^6/uL (4.5-5.90); Red Cell Distribution Width 19.9 % (11.8-14.3); White Blood Cell 9.3 10^3/uL (4.4-10.8)
[2021-01-03 07:35] VITALS: BP 152/68
[2021-01-03 07:51] LABS: Potassium 5.4 mmol/L (3.5-5.1)
[2021-01-03 07:59] LABS: Albumin 3.2 g/dL (3.4-5.0); BUN/Creatinine Ratio 18.2; Bilirubin, Total 0.3 mg/dL (0.2-1.0); Calcium 8.2 mg/dL (8.5-10.1); Total Protein 6.7 g/dL (6.4-8.2)
[2021-01-03] MEDS: CALCIUM ACETATE 667 MG CAP PO SCH ×3 (08:00→18:00)
[2021-01-03 09:06] LABS: Immunoglobulin G, Serum 1266 mg/dL (603-1613)
[2021-01-03] MEDS: HCTZ 25 MG TAB PO SCH (10:00)
[2021-01-03] MEDS: SODIUM BICARBONATE 650 MG TAB PO SCH (10:00)
[2021-01-03] MEDS: ASCORBIC ACID 500 MG TAB PO SCH ×2 (10:00→21:32)
[2021-01-03] MEDS: ZINC SULFATE 220mg CAP or TAB PO SCH (10:00)
[2021-01-03] MEDS: B-COMPLEX W/ C & FOLIC ACID(NEPHROVITE TAB) PO SCH (10:00)
[2021-01-03] MEDS: amLODIPine BESYLATE 5 MG TAB PO SCH (10:00)
[2021-01-03] MEDS: CARVEDILOL 12.5 MG TAB PO SCH ×3 (10:00→22:00)
[2021-01-03] MEDS ORDERED: SODIUM ZIRCONIUM CYCL 10 GM PAK PO ONE ×4 (11:30→12:15)
[2021-01-03 15:54] VITALS: BP 135/72
[2021-01-03] MEDS ORDERED: DEXTROSE (50%) 50ML SYRG IV PRN (20:00)
[2021-01-03] MEDS: FAMOTIDINE (10MG/ML) 2ML VL IV SCH (21:31)
[2021-01-03] MEDS: ATORVASTATIN 20 MG TAB PO SCH (21:32)
[2021-01-03] MEDS: hydrALAZINE HCL 25 MG TAB PO SCH (22:13)
[2021-01-03 22:25] VITALS: BP 138/52
[2021-01-04] VITALS (8 sets, daily range): BP systolic 127–154; BP diastolic 57–73
[2021-01-04] MEDS: INSULIN LANTUS (GLARGINE) 1 /0.01ml (100units/ml) SC SCH ×2 (06:24→22:09)
[2021-01-04] MEDS: ACCU-CHEK COMFORT CURVE STRIP VI SCH ×7 (06:24→21:47)
[2021-01-04] MEDS: InsuLIN REG 1unit/0.01ml Soln (100units/ml) SC SCH ×4 (06:29→21:51)
[2021-01-04 06:50] LABS: Hematocrit 21.4 % (41.0-53.0)
[2021-01-04 07:01] LABS: Hemoglobin 6.8 g/dL (13.5-17.5)
[2021-01-04 07:04] LABS: BUN/Creatinine Ratio 19.6; Calcium 7.9 mg/dL (8.5-10.1); Potassium 4.8 mmol/L (3.5-5.1)
[2021-01-04] MEDS: CALCIUM ACETATE 667 MG CAP PO SCH ×3 (08:00→18:03)
[2021-01-04] MEDS ORDERED: DEXTROSE (50%) 50ML SYRG IV PRN (08:45)
[2021-01-04] MEDS ORDERED: InsuLIN REG 1unit/0.01ml Soln (100units/ml) IV ONE (08:45)
[2021-01-04] MEDS: ZINC SULFATE 220mg CAP or TAB PO SCH (09:23)
[2021-01-04] MEDS: CARVEDILOL 12.5 MG TAB PO SCH ×2 (09:24→21:47)
[2021-01-04] MEDS: hydrALAZINE HCL 25 MG TAB PO SCH ×2 (09:24→21:46)
[2021-01-04] MEDS: B-COMPLEX W/ C & FOLIC ACID(NEPHROVITE TAB) PO SCH (09:24)
[2021-01-04] MEDS: ASCORBIC ACID 500 MG TAB PO SCH ×2 (09:25→21:47)
[2021-01-04] MEDS: amLODIPine BESYLATE 5 MG TAB PO SCH (09:25)
[2021-01-04] MEDS ORDERED: HYDROmorphone HCL 2 MG/ML VL IV ONE (12:45)
[2021-01-04 15:51] LABS: Hematocrit 24.3 % (41.0-53.0); Hemoglobin 8.1 g/dL (13.5-17.5)
[2021-01-04] MEDS: FAMOTIDINE (10MG/ML) 2ML VL IV SCH (21:46)
[2021-01-04] MEDS: ATORVASTATIN 20 MG TAB PO SCH (21:47)
[2021-01-05 05:00] VITALS: BP 146/76
[2021-01-05] MEDS: ACCU-CHEK COMFORT CURVE STRIP VI SCH ×7 (06:41→23:31)
[2021-01-05] MEDS: InsuLIN REG 1unit/0.01ml Soln (100units/ml) SC SCH ×4 (06:42→23:37)
[2021-01-05] MEDS: INSULIN LANTUS (GLARGINE) 1 /0.01ml (100units/ml) SC SCH ×2 (06:42→23:35)
[2021-01-05 08:00] VITALS: BP 158/72
[2021-01-05] MEDS: B-COMPLEX W/ C & FOLIC ACID(NEPHROVITE TAB) PO SCH (08:28)
[2021-01-05] MEDS: ZINC SULFATE 220mg CAP or TAB PO SCH (08:28)
[2021-01-05] MEDS: CALCIUM ACETATE 667 MG CAP PO SCH ×3 (08:28→17:09)
[2021-01-05] MEDS: ASCORBIC ACID 500 MG TAB PO SCH ×2 (08:28→23:30)
[2021-01-05] MEDS: hydrALAZINE HCL 25 MG TAB PO SCH ×2 (08:28→23:27)
[2021-01-05] MEDS: CARVEDILOL 12.5 MG TAB PO SCH (08:28)
[2021-01-05] MEDS: amLODIPine BESYLATE 5 MG TAB PO SCH (08:28)
[2021-01-05 10:19] LABS: Hematocrit 25.2 % (41.0-53.0)
[2021-01-05 10:23] LABS: Hemoglobin 8.3 g/dL (13.5-17.5)
[2021-01-05 17:00] VITALS: BP 119/56
[2021-01-05 22:00] VITALS: BP 130/60
[2021-01-05] MEDS: FAMOTIDINE (10MG/ML) 2ML VL IV SCH (23:27)
[2021-01-05] MEDS: CARVEDILOL 3.125 MG TAB PO SCH (23:28)
[2021-01-05] MEDS: ATORVASTATIN 20 MG TAB PO SCH (23:29)
[2021-01-06 05:53] VITALS: BP 121/57
[2021-01-06] MEDS: ACCU-CHEK COMFORT CURVE STRIP VI SCH ×2 (06:37→11:46)
[2021-01-06] MEDS: INSULIN LANTUS (GLARGINE) 1 /0.01ml (100units/ml) SC SCH (06:40)
[2021-01-06] MEDS: InsuLIN REG 1unit/0.01ml Soln (100units/ml) SC SCH ×2 (06:41→11:47)
[2021-01-06 07:23] LABS: Calcium 8.3 mg/dL (8.5-10.1); Potassium 4.2 mmol/L (3.5-5.1)
[2021-01-06 07:26] LABS: BUN/Creatinine Ratio 20.8
[2021-01-06] MEDS: CALCIUM ACETATE 667 MG CAP PO SCH ×2 (08:48→11:47)
[2021-01-06 09:00] VITALS: BP 133/68
[2021-01-06] MEDS: ZINC SULFATE 220mg CAP or TAB PO SCH (10:32)
[2021-01-06] MEDS: hydrALAZINE HCL 25 MG TAB PO SCH (10:32)
[2021-01-06] MEDS: CARVEDILOL 3.125 MG TAB PO SCH (10:33)
[2021-01-06] MEDS: B-COMPLEX W/ C & FOLIC ACID(NEPHROVITE TAB) PO SCH (10:33)
[2021-01-06] MEDS: amLODIPine BESYLATE 5 MG TAB PO SCH (10:34)
[2021-01-06] MEDS: ASCORBIC ACID 500 MG TAB PO SCH (10:34)
[2021-01-06] MEDS ORDERED: CAR3125T PO (12:19)
[2021-01-06] MEDS ORDERED: AML5T PO (12:19)
[2021-01-06] MEDS ORDERED: HYDR25TA87 PO (12:21)
[2021-01-06 13:00] VITALS: BP 147/76
[2021-01-06 14:41] VITALS: BP 124/66
== END 2021-01-06 16:00 | disposition home or self-care (01) | DRG 814 ==
LOC: ER 17:14 → TELE 17:15 → TELE-EAST 23:24 → TELE-CENTR 01-02 10:20
PROVIDERS: ADMIT Nurse Practitioner Family; ATTEND Internal Medicine Nephrology
PROC: 30233N1 Transfusion of Nonautologous Red Blood Cells into Peripheral Vein, Percutaneous Approach (ICD-10-PCS; principal; 2020-12-31)
PROC: 07DR3ZX Extraction of Iliac Bone Marrow, Percutaneous Approach, Diagnostic (ICD-10-PCS; 2021-01-04)
DX: D47.2 Monoclonal gammopathy (principal); N17.0 Acute kidney failure with tubular necrosis; D62 Acute posthemorrhagic anemia; E87.1 Hypo-osmolality and hyponatremia; N18.4 Chronic kidney disease, stage 4 (severe); I13.0 Hypertensive heart and chronic kidney disease with heart failure and stage 1 through stage 4 chronic kidney disease, or unspecified chronic kidney disease; I50.30 Unspecified diastolic (congestive) heart failure; K21.9 Gastro-esophageal reflux disease without esophagitis; E11.22 Type 2 diabetes mellitus with diabetic chronic kidney disease; E11.65 Type 2 diabetes mellitus with hyperglycemia; E78.5 Hyperlipidemia, unspecified; F12.90 Cannabis use, unspecified, uncomplicated; F17.210 Nicotine dependence, cigarettes, uncomplicated; I25.10 Atherosclerotic heart disease of native coronary artery without angina pectoris; R00.1 Bradycardia, unspecified; Z20.822 Contact with and (suspected) exposure to COVID-19; E87.5 Hyperkalemia; E11.319 Type 2 diabetes mellitus with unspecified diabetic retinopathy without macular edema; D63.8 Anemia in other chronic diseases classified elsewhere; H54.7 Unspecified visual loss; Z91.11 Patient's noncompliance with dietary regimen; Z82.49 Family history of ischemic heart disease and other diseases of the circulatory system; Z83.3 Family history of diabetes mellitus; Z86.73 Personal history of transient ischemic attack (TIA), and cerebral infarction without residual deficits
CPT/HCPCS: 36415; 36430; 71045; 74250; 76775; 77074; 80048; 80053; 81001; 82570; 82784; 82962; 83036; 83615; 83735; 83880; 83883; 84100; 84155; 84156; 84165; 84300; 84443; 84484; 85014; 85018; 85025; 85610; 86334; 86850; 86880; 86900; 86901; 86920; 93005; 93306; 96365; 96372; 96375; 97163; G0378; J1815; J3490

== ENCOUNTER → 2021-01-20 | Outpatient (CLI) | payer MEDICARE, OTHER ==
[~2021-01-20] MED LIST changes: +HYDR25TA87 PO
[2021-01-20 11:35] LABS: Basophils # (auto) 0.1 10 ^3/uL (0-0.2); Basophils % (auto) 1.3 % (0.0-2.0); Eosinophils # (auto) 0.2 10 ^3/uL (0-0.8); Monocytes # (auto) 0.5 10 ^3/uL (0-1.3)
[2021-01-20 11:37] LABS: Hematocrit 23.1 % (41.0-53.0); Hemoglobin 7.3 g/dL (13.5-17.5); Lymphocytes # (auto) 0.8 10 ^3/uL (0.4-5.4); Lymphocytes % (auto) 9.4 % (10.0-50.0); Mean Corpuscular Hemoglobin 25.5 pg (28.0-32.0); Mean Corpuscular Hgb Conc. 31.8 g/dL (32.0-36.0); Mean Corpuscular Volume 80.3 fL (80.0-100.0); Monocytes % (auto) 5.4 % (0.0-12.0); Neutrophils # (auto) 7.2 10 ^3/uL (1.6-8.6); Neutrophils % (auto) 81.9 % (37.0-80.0); Platelet Count (auto) 500 10^3/uL (140-450); Red Blood Cells 2.88 10^6/uL (4.5-5.90); White Blood Cell 8.8 10^3/uL (4.4-10.8)
== END | disposition home or self-care (01) ==
LOC: LAB 10:59
PROVIDERS: ATTEND Internal Medicine Nephrology
DX: D64.9 Anemia, unspecified (principal)
CPT/HCPCS: 36415; 85025

== ENCOUNTER 2021-02-03 12:08 | Inpatient (IN) | payer MEDICARE, OTHER ==
[2021-02-03] VITALS (7 sets, daily range): BP systolic 137–160; BP diastolic 56–74
[~2021-02-03] VITALS: Ht 170.2 cm; Wt 63.9 kg
[2021-02-03 13:16] LABS: Basophils # (auto) 0.1 10 ^3/uL (0-0.2); Eosinophils # (auto) 0.1 10 ^3/uL (0-0.8); Neutrophils # (auto) 5.7 10 ^3/uL (1.6-8.6)
[2021-02-03 13:17] LABS: Basophils % (auto) 1.3 % (0.0-2.0); Eosinophils % (auto) 2.1 % (0.0-7.0); Hematocrit 16.2 % (41.0-53.0); Lymphocytes # (auto) 0.6 10 ^3/uL (0.4-5.4); Lymphocytes % (auto) 8.3 % (10.0-50.0); Mean Corpuscular Hemoglobin 24.9 pg (28.0-32.0); Mean Corpuscular Hgb Conc. 32.2 g/dL (32.0-36.0); Mean Corpuscular Volume 77.2 fL (80.0-100.0); Monocytes # (auto) 0.5 10 ^3/uL (0-1.3); Monocytes % (auto) 6.5 % (0.0-12.0); Neutrophils % (auto) 81.8 % (37.0-80.0); Platelet Count (auto) 303 10^3/uL (140-450)
[2021-02-03 13:22] LABS: Hemoglobin 5.2 g/dL (13.5-17.5)
[2021-02-03 13:36] LABS: Albumin 2.9 g/dL (3.4-5.0); Anion Gap 5 (5-15); Blood Urea Nitrogen 33 mg/dL (7-18); Calcium 8.1 mg/dL (8.5-10.1); Carbon Dioxide 24 mmol/L (21-32); Chloride 110 mmol/L (98-107); Glucose 180 mg/dL (74-106); Potassium 4.6 mmol/L (3.5-5.1); Sodium 139 mmol/L (136-145)
[2021-02-03 13:37] LABS: INR 0.93 (0.9-1.15); Partial Thromboplastin Time 24.8 sec (23.0-31.2)
[2021-02-03 13:37] LABS: Urine Bacteria FEW /hpf (None Seen); Urine Blood Negative /uL (Negative); Urine Specific Gravity 1.011 (1.001-1.035); Urine WBC 1 /hpf (0 - 3)
[2021-02-03 13:42] LABS: Alanine Aminotransferase 14 U/L (16-61); Alkaline Phosphatase 92 U/L (45-117); Aspartate Aminotransferase 15 U/L (15-37); BUN/Creatinine Ratio 12.5; Bilirubin, Total 0.2 mg/dL (0.2-1.0); GFR African American 31 mL/min; GFR Non-African American 26 mL/min; Total Protein 6.7 g/dL (6.4-8.2)
[2021-02-03] MEDS ORDERED: NITROGLYCERIN 0.4 MG SL TAB SL PRN (14:00)
[2021-02-03] MEDS ORDERED: LORazepam 2MG/ML-1ML VIAL IV PRN (14:00)
[2021-02-03] MEDS ORDERED: ONDANSETRON HCL 4 MG/2 ML VIAL IV PRN (14:00)
[2021-02-03] MEDS ORDERED: SODIUM CHLORIDE 0.9% 1,000 ML IV ONE (14:00)
[2021-02-03] MEDS ORDERED: MORPHINE SULF INJ 2 MG/ML SYRINGE 1ML IV PRN ×2 (14:00)
[2021-02-03] MEDS ORDERED: ACETAMINOPHEN 500 MG TAB PO PRN (14:00)
[2021-02-03] MEDS ORDERED: DEXTROSE (50%) 50ML SYRG IV PRN (14:45)
[2021-02-03] MEDS: SODIUM CHLORIDE 0.9% 1,000 ML IV SCH (15:04)
[2021-02-03] MEDS: ACCU-CHEK COMFORT CURVE STRIP VI SCH ×2 (17:21→23:17)
[2021-02-03] MEDS: InsuLIN REG 1unit/0.01ml Soln (100units/ml) SC SCH ×2 (17:30→23:22)
[2021-02-03] MEDS: PANTOPRAZOLE 40 MG/10 ML VIAL INJ IV SCH (21:56)
[2021-02-03] MEDS: CARVEDILOL 3.125 MG TAB PO SCH (21:58)
[2021-02-03] MEDS: INSULIN LANTUS (GLARGINE) 1 /0.01ml (100units/ml) SC SCH (21:59)
[2021-02-04] VITALS (7 sets, daily range): BP systolic 150–175; BP diastolic 60–85
[2021-02-04 03:15] LABS: Hemoglobin 7.6 g/dL (13.5-17.5)
[2021-02-04 03:17] LABS: Hematocrit 23.5 % (41.0-53.0)
[2021-02-04 05:49] LABS: Basophils # (auto) 0.1 10 ^3/uL (0-0.2); Lymphocytes # (auto) 0.8 10 ^3/uL (0.4-5.4); Monocytes # (auto) 0.7 10 ^3/uL (0-1.3); Neutrophils # (auto) 6.6 10 ^3/uL (1.6-8.6); White Blood Cell 8.3 10^3/uL (4.4-10.8)
[2021-02-04 05:53] LABS: Basophils % (auto) 0.7 % (0.0-2.0); Eosinophils # (auto) 0.1 10 ^3/uL (0-0.8); Eosinophils % (auto) 1.7 % (0.0-7.0); Hematocrit 26.2 % (41.0-53.0); Hemoglobin 8.7 g/dL (13.5-17.5); Lymphocytes % (auto) 9.2 % (10.0-50.0); Mean Corpuscular Hemoglobin 26.2 pg (28.0-32.0); Mean Corpuscular Hgb Conc. 33.3 g/dL (32.0-36.0); Mean Corpuscular Volume 78.8 fL (80.0-100.0); Neutrophils % (auto) 79.4 % (37.0-80.0); Nucleated Red Blood Cells % 0.1 %; Platelet Count (auto) 297 10^3/uL (140-450); Red Blood Cells 3.33 10^6/uL (4.5-5.90); Red Cell Distribution Width 18.8 % (11.8-14.3)
[2021-02-04 05:58] LABS: Hematocrit 26.1 % (41.0-53.0); Hemoglobin 8.6 g/dL (13.5-17.5)
[2021-02-04] MEDS: InsuLIN REG 1unit/0.01ml Soln (100units/ml) SC SCH ×4 (06:00→23:32)
[2021-02-04 06:05] LABS: Calcium 7.9 mg/dL (8.5-10.1); Potassium 4.7 mmol/L (3.5-5.1)
[2021-02-04 06:10] LABS: Albumin 2.8 g/dL (3.4-5.0); BUN/Creatinine Ratio 13.6; Bilirubin, Total 0.2 mg/dL (0.2-1.0); Total Protein 6.5 g/dL (6.4-8.2)
[2021-02-04] MEDS: ACCU-CHEK COMFORT CURVE STRIP VI SCH ×4 (06:23→23:31)
[2021-02-04] MEDS: SODIUM CHLORIDE 0.9% 1,000 ML IV SCH (06:23)
[2021-02-04] MEDS: PANTOPRAZOLE 40 MG/10 ML VIAL INJ IV SCH ×2 (10:04→22:03)
[2021-02-04] MEDS: hydrALAZINE HCL 20 MG/ML VL IV PRN (10:05)
[2021-02-04] MEDS: CARVEDILOL 3.125 MG TAB PO SCH ×2 (10:05→22:04)
[2021-02-04] MEDS: IRON SUCROSE COMPLEX 200 MG in SODIUM CHL 0.9% 100 ML IV SCH (13:14)
[2021-02-04] MEDS ORDERED: hydrALAZINE HCL 25 MG TAB PO ONE (13:15)
[2021-02-04 13:45] LABS: Hematocrit 28.1 % (41.0-53.0); Hemoglobin 9.1 g/dL (13.5-17.5)
[2021-02-04] MEDS ORDERED: EPOETIN ALFA-EPBX 10,000 UNIT/1ML VIAL SC ONE (21:00)
[2021-02-04 21:08] LABS: Hemoglobin 8.3 g/dL (13.5-17.5)
[2021-02-04 21:09] LABS: Hematocrit 25.7 % (41.0-53.0)
[2021-02-04] MEDS: hydrALAZINE HCL 25 MG TAB PO SCH (22:03)
[2021-02-04] MEDS: ATORVASTATIN 20 MG TAB PO SCH (22:04)
[2021-02-04] MEDS: INSULIN LANTUS (GLARGINE) 1 /0.01ml (100units/ml) SC SCH (23:31)
[2021-02-05 05:00] VITALS: BP 152/66
[2021-02-05] MEDS: ACCU-CHEK COMFORT CURVE STRIP VI SCH ×4 (05:55→23:15)
[2021-02-05] MEDS: InsuLIN REG 1unit/0.01ml Soln (100units/ml) SC SCH ×4 (05:56→23:16)
[2021-02-05 06:45] LABS: Basophils # (auto) 0.1 10 ^3/uL (0-0.2); Eosinophils # (auto) 0.2 10 ^3/uL (0-0.8); Monocytes # (auto) 0.8 10 ^3/uL (0-1.3); Potassium 4.9 mmol/L (3.5-5.1); Red Cell Distribution Width 18.7 % (11.8-14.3); White Blood Cell 8.6 10^3/uL (4.4-10.8)
[2021-02-05 06:50] LABS: Basophils % (auto) 0.8 % (0.0-2.0); Eosinophils % (auto) 2.1 % (0.0-7.0); Hemoglobin 7.8 g/dL (13.5-17.5); Lymphocytes # (auto) 0.5 10 ^3/uL (0.4-5.4); Lymphocytes % (auto) 6.3 % (10.0-50.0); Mean Corpuscular Hemoglobin 26.5 pg (28.0-32.0); Mean Corpuscular Hgb Conc. 33.8 g/dL (32.0-36.0); Mean Corpuscular Volume 78.3 fL (80.0-100.0); Monocytes % (auto) 8.8 % (0.0-12.0); Platelet Count (auto) 250 10^3/uL (140-450); Red Blood Cells 2.94 10^6/uL (4.5-5.90)
[2021-02-05 06:53] LABS: Albumin 2.6 g/dL (3.4-5.0); BUN/Creatinine Ratio 13.7; Bilirubin, Total 0.2 mg/dL (0.2-1.0); Calcium 8.1 mg/dL (8.5-10.1); Total Protein 6.1 g/dL (6.4-8.2)
[2021-02-05] MEDS: PANTOPRAZOLE 40 MG/10 ML VIAL INJ IV SCH ×2 (08:59→21:27)
[2021-02-05 09:00] VITALS: BP 142/64
[2021-02-05] MEDS: hydrALAZINE HCL 25 MG TAB PO SCH ×3 (09:00→21:27)
[2021-02-05] MEDS: CARVEDILOL 3.125 MG TAB PO SCH ×2 (09:01→21:28)
[2021-02-05] MEDS: IRON SUCROSE COMPLEX 200 MG in SODIUM CHL 0.9% 100 ML IV SCH (12:05)
[2021-02-05] MEDS: hydrALAZINE HCL 20 MG/ML VL IV PRN (12:09)
[2021-02-05 13:00] VITALS: BP 167/71
[2021-02-05 14:00] VITALS: BP 152/70
[2021-02-05 16:58] VITALS: BP 155/76
[2021-02-05] MEDS: ATORVASTATIN 20 MG TAB PO SCH (21:28)
[2021-02-05 22:00] VITALS: BP 139/61
[2021-02-05] MEDS: INSULIN LANTUS (GLARGINE) 1 /0.01ml (100units/ml) SC SCH (23:16)
[2021-02-06 05:00] VITALS: BP 165/64
[2021-02-06] MEDS: hydrALAZINE HCL 25 MG TAB PO SCH ×2 (05:45→14:45)
[2021-02-06] MEDS: InsuLIN REG 1unit/0.01ml Soln (100units/ml) SC SCH ×3 (05:45→17:32)
[2021-02-06] MEDS: ACCU-CHEK COMFORT CURVE STRIP VI SCH ×3 (05:45→17:31)
[2021-02-06 06:25] VITALS: BP 153/70
[2021-02-06 07:37] LABS: Basophils # (auto) 0.1 10 ^3/uL (0-0.2); Eosinophils # (auto) 0.1 10 ^3/uL (0-0.8); Monocytes # (auto) 0.5 10 ^3/uL (0-1.3)
[2021-02-06 07:38] LABS: Basophils % (auto) 0.8 % (0.0-2.0); Eosinophils % (auto) 0.7 % (0.0-7.0); Hematocrit 27.4 % (41.0-53.0); Hemoglobin 8.7 g/dL (13.5-17.5); Lymphocytes # (auto) 0.3 10 ^3/uL (0.4-5.4); Lymphocytes % (auto) 2.5 % (10.0-50.0); Mean Corpuscular Hemoglobin 25.4 pg (28.0-32.0); Mean Corpuscular Hgb Conc. 31.9 g/dL (32.0-36.0); Mean Corpuscular Volume 79.7 fL (80.0-100.0); Neutrophils # (auto) 11.8 10 ^3/uL (1.6-8.6); Platelet Count (auto) 278 10^3/uL (140-450); Red Blood Cells 3.44 10^6/uL (4.5-5.90); White Blood Cell 12.8 10^3/uL (4.4-10.8)
[2021-02-06 09:00] VITALS: BP 156/79
[2021-02-06] MEDS: PANTOPRAZOLE 40 MG/10 ML VIAL INJ IV SCH (09:45)
[2021-02-06] MEDS: CARVEDILOL 3.125 MG TAB PO SCH (09:47)
[2021-02-06] MEDS ORDERED: SODIUM FERR GLUC 62.5MG/5ML 125 MG in SODIUM CHL 0.9% 100 ML IV SCH (12:00)
[2021-02-06] MEDS: hydrALAZINE HCL 20 MG/ML VL IV PRN (12:27)
[2021-02-06 13:00] VITALS: BP 165/84
[2021-02-06 14:20] VITALS: BP 161/80
[2021-02-06 17:00] VITALS: BP 158/68
== END 2021-02-06 19:06 | disposition home or self-care (01) | DRG 812 ==
LOC: ER 12:08 → TELE 12:09 → TELE-EAST 15:48 → TELE-WESTW 02-04 05:07
PROVIDERS: ADMIT Family Medicine; ATTEND Internal Medicine
PROC: 30230N1 Transfusion of Nonautologous Red Blood Cells into Peripheral Vein, Open Approach (ICD-10-PCS; principal; 2021-02-03)
DX: D50.9 Iron deficiency anemia, unspecified (principal); N17.9 Acute kidney failure, unspecified; I13.0 Hypertensive heart and chronic kidney disease with heart failure and stage 1 through stage 4 chronic kidney disease, or unspecified chronic kidney disease; R65.10 Systemic inflammatory response syndrome (SIRS) of non-infectious origin without acute organ dysfunction; N18.4 Chronic kidney disease, stage 4 (severe); I50.9 Heart failure, unspecified; D47.2 Monoclonal gammopathy; K21.9 Gastro-esophageal reflux disease without esophagitis; E11.319 Type 2 diabetes mellitus with unspecified diabetic retinopathy without macular edema; E11.40 Type 2 diabetes mellitus with diabetic neuropathy, unspecified; E11.22 Type 2 diabetes mellitus with diabetic chronic kidney disease; E78.5 Hyperlipidemia, unspecified; F32.9 Major depressive disorder, single episode, unspecified; F41.9 Anxiety disorder, unspecified; F17.210 Nicotine dependence, cigarettes, uncomplicated; I25.10 Atherosclerotic heart disease of native coronary artery without angina pectoris; Z20.822 Contact with and (suspected) exposure to COVID-19; Z79.899 Other long term (current) drug therapy; Z82.49 Family history of ischemic heart disease and other diseases of the circulatory system; Z86.73 Personal history of transient ischemic attack (TIA), and cerebral infarction without residual deficits; Z83.3 Family history of diabetes mellitus; Z95.5 Presence of coronary angioplasty implant and graft
CPT/HCPCS: 36415; 71045; 76536; 80053; 81001; 82962; 83036; 83615; 83880; 84436; 84443; 84484; 85014; 85018; 85025; 85610; 85730; 86850; 86900; 86901; 86920; 87081; 87426; 93005; 96360; C9113; G0378; J1756; J1815

== ENCOUNTER → 2021-02-03 | Outpatient (CLI) | payer MEDICARE, OTHER ==
[2021-02-03 10:14] LABS: Lymphocytes # (auto) 0.6 10 ^3/uL (0.4-5.4); Neutrophils % (auto) 83.3 % (37.0-80.0); Nucleated Red Blood Cells % 0.1 %
[2021-02-03 10:18] LABS: Basophils # (auto) 0 10 ^3/uL (0-0.2); Basophils % (auto) 0.7 % (0.0-2.0); Eosinophils # (auto) 0.2 10 ^3/uL (0-0.8); Eosinophils % (auto) 2.3 % (0.0-7.0); Lymphocytes % (auto) 8.5 % (10.0-50.0); Mean Corpuscular Hemoglobin 25.9 pg (28.0-32.0); Mean Corpuscular Hgb Conc. 32.5 g/dL (32.0-36.0); Mean Corpuscular Volume 79.8 fL (80.0-100.0); Monocytes # (auto) 0.4 10 ^3/uL (0-1.3); Monocytes % (auto) 5.2 % (0.0-12.0); Neutrophils # (auto) 5.6 10 ^3/uL (1.6-8.6); Platelet Count (auto) 326 10^3/uL (140-450); Red Blood Cells 2.39 10^6/uL (4.5-5.90); White Blood Cell 6.7 10^3/uL (4.4-10.8)
[2021-02-03 10:41] LABS: Red Cell Distribution Width 20.4 % (11.8-14.3)
[2021-02-03 10:43] LABS: Hemoglobin 6.2 g/dL (13.5-17.5)
[2021-02-03 10:49] LABS: Albumin 3.5 g/dL (3.4-5.0); Calcium 8.6 mg/dL (8.5-10.1); Potassium 4.5 mmol/L (3.5-5.1)
[2021-02-03 10:50] LABS: Ferritin 7.5 ng/mL (10-322); Free T4 (Free Thyroxine) 1.04 ng/dL (0.89-1.76); T3 Total 0.78 ng/mL (0.60-1.81)
[2021-02-03 10:51] LABS: Folate (Folic Acid) 17.02 ng/mL (5.38-24)
[2021-02-03 10:52] LABS: BUN/Creatinine Ratio 12.8; Bilirubin, Total 0.2 mg/dL (0.2-1.0); Total Protein 7.8 g/dL (6.4-8.2)
[2021-02-03 15:27] LABS: % Iron Saturation 4.4 % (20-55)
== END | disposition home or self-care (01) ==
LOC: LAB 09:15
PROVIDERS: ATTEND Internal Medicine
DX: E11.9 Type 2 diabetes mellitus without complications (principal); D69.6 Thrombocytopenia, unspecified; D64.9 Anemia, unspecified; E88.09 Other disorders of plasma-protein metabolism, not elsewhere classified; Z79.899 Other long term (current) drug therapy
CPT/HCPCS: 36415; 80053; 82232; 82306; 82607; 82668; 82728; 82746; 82784; 83540; 83550; 83615; 83883; 84155; 84165; 84436; 84439; 84443; 84480; 85025; 86225; 86235; 86334; 86335; 86880

== ENCOUNTER 2021-02-17 15:14 | Inpatient (IN) | payer MEDICARE, OTHER ==
[~2021-02-17] VITALS: Ht 170.2 cm; Wt 64.8 kg
[2021-02-17] MEDS ORDERED: InsuLIN REG 1unit/0.01ml Soln (100units/ml) IV ONE (15:45)
[2021-02-17 16:03] LABS: Basophils # (auto) 0.1 10 ^3/uL (0-0.2); Eosinophils # (auto) 0 10 ^3/uL (0-0.8); Eosinophils % (auto) 0.2 % (0.0-7.0); Hemoglobin 7.8 g/dL (13.5-17.5); Lymphocytes # (auto) 0.4 10 ^3/uL (0.4-5.4); Monocytes # (auto) 0.5 10 ^3/uL (0-1.3); Monocytes % (auto) 4.8 % (0.0-12.0)
[2021-02-17 16:04] LABS: Basophils % (auto) 0.8 % (0.0-2.0); Hematocrit 24.8 % (41.0-53.0); Lymphocytes % (auto) 3.5 % (10.0-50.0); Mean Corpuscular Hemoglobin 26.9 pg (28.0-32.0); Mean Corpuscular Hgb Conc. 31.3 g/dL (32.0-36.0); Mean Corpuscular Volume 85.7 fL (80.0-100.0); Neutrophils # (auto) 9.1 10 ^3/uL (1.6-8.6); Neutrophils % (auto) 90.7 % (37.0-80.0); Platelet Count (auto) 413 10^3/uL (140-450); Red Blood Cells 2.89 10^6/uL (4.5-5.90)
[2021-02-17 16:07] LABS: Red Cell Distribution Width 20.9 % (11.8-14.3)
[2021-02-17] MEDS ORDERED: SODIUM CHLORIDE 0.9% 1,000 ML IV ONE ×3 (16:15→19:00)
[2021-02-17 16:23] LABS: Calcium 8.1 mg/dL (8.5-10.1); Potassium 4.7 mmol/L (3.5-5.1)
[2021-02-17 16:25] LABS: Bilirubin, Total 0.3 mg/dL (0.2-1.0); Total Protein 7.2 g/dL (6.4-8.2)
[2021-02-17 16:32] LABS: Albumin 3.4 g/dL (3.4-5.0)
[2021-02-17 16:39] LABS: BUN/Creatinine Ratio 16.1
[2021-02-17] MEDS ORDERED: MORPHINE SULF INJ 2 MG/ML SYRINGE 1ML IV PRN ×2 (19:00)
[2021-02-17] MEDS ORDERED: DEXTROSE (50%) 50ML SYRG IV PRN (19:00)
[2021-02-17] MEDS ORDERED: DOCUSATE CALCIUM 240 MG CAP PO PRN (19:00)
[2021-02-17] MEDS ORDERED: ACETAMINOPHEN 500 MG TAB PO PRN (19:00)
[2021-02-17] MEDS ORDERED: diphenhdrAMINE HCL 25 MG CAP PO PRN (19:00)
[2021-02-17] MEDS ORDERED: LORazepam 0.5 MG TAB PO PRN (19:00)
[2021-02-17] MEDS ORDERED: ONDANSETRON HCL 4 MG/2 ML VIAL IV PRN (19:00)
[2021-02-17] MEDS ORDERED: NITROGLYCERIN 0.4 MG SL TAB SL PRN (19:00)
[2021-02-17 19:59] LABS: INR 0.94 (0.9-1.15)
[2021-02-17] MEDS: ACETAMINOPHEN 500 MG TAB PO ONE ×2 (20:00→20:34)
[2021-02-17] MEDS: ACCU-CHEK COMFORT CURVE STRIP VI SCH (20:19)
[2021-02-17] MEDS ORDERED: INSULIN LANTUS (GLARGINE) 1 /0.01ml (100units/ml) SC ONE (20:30)
[2021-02-17] MEDS: InsuLIN REG 1unit/0.01ml Soln (100units/ml) SC SCH (20:36)
[2021-02-17] MEDS: INSULIN LANTUS (GLARGINE) 1 /0.01ml (100units/ml) SC SCH (20:38)
[2021-02-17] MEDS: CARVEDILOL 3.125 MG TAB PO SCH (22:20)
[2021-02-17] MEDS: SODIUM CHLORIDE 0.9% 1,000 ML IV SCH (22:42)
[2021-02-18] VITALS (9 sets, daily range): BP systolic 138–163; BP diastolic 64–77
[2021-02-18] MEDS: ACCU-CHEK COMFORT CURVE STRIP VI SCH ×6 (04:00→20:00)
[2021-02-18] MEDS: InsuLIN REG 1unit/0.01ml Soln (100units/ml) SC SCH ×6 (04:00→20:00)
[2021-02-18] MEDS: SODIUM CHLORIDE 0.9% 1,000 ML IV SCH (05:00)
[2021-02-18 07:48] LABS: Basophils # (auto) 0.1 10 ^3/uL (0-0.2); Eosinophils # (auto) 0.2 10 ^3/uL (0-0.8); Eosinophils % (auto) 2.2 % (0.0-7.0); Lymphocytes # (auto) 0.6 10 ^3/uL (0.4-5.4); Monocytes # (auto) 0.8 10 ^3/uL (0-1.3); Nucleated Red Blood Cells % 0.1 %; Red Cell Distribution Width 20.6 % (11.8-14.3)
[2021-02-18 07:52] LABS: Basophils % (auto) 0.9 % (0.0-2.0); Hematocrit 24.6 % (41.0-53.0); Hemoglobin 8.2 g/dL (13.5-17.5); Lymphocytes % (auto) 6.1 % (10.0-50.0); Mean Corpuscular Hemoglobin 27.4 pg (28.0-32.0); Mean Corpuscular Hgb Conc. 33.4 g/dL (32.0-36.0); Mean Corpuscular Volume 82.3 fL (80.0-100.0); Monocytes % (auto) 7.9 % (0.0-12.0); Neutrophils # (auto) 8.7 10 ^3/uL (1.6-8.6); Neutrophils % (auto) 82.9 % (37.0-80.0); Platelet Count (auto) 390 10^3/uL (140-450); Red Blood Cells 2.99 10^6/uL (4.5-5.90); White Blood Cell 10.5 10^3/uL (4.4-10.8)
[2021-02-18 08:13] LABS: Albumin 2.9 g/dL (3.4-5.0); Calcium 8.2 mg/dL (8.5-10.1); Magnesium 2.9 mg/dL (1.6-2.6); Potassium 4.2 mmol/L (3.5-5.1)
[2021-02-18 08:18] LABS: BUN/Creatinine Ratio 16.9; Bilirubin, Total 0.4 mg/dL (0.2-1.0); Phosphorus 3.6 mg/dL (2.5-4.90); Total Protein 6.3 g/dL (6.4-8.2)
[2021-02-18] MEDS ORDERED: SODIUM BICARBONATE 650 MG TAB PO SCH (10:00)
[2021-02-18] MEDS: PANTOPRAZOLE 40 MG TAB PO SCH (10:41)
[2021-02-18] MEDS: SODIUM BICARBONATE 50ML VIAL 50 ML in SOD CHL 0.45% 1,000 ML IV SCH ×2 (10:45→18:07)
[2021-02-18] MEDS: CARVEDILOL 3.125 MG TAB PO SCH ×2 (12:09→21:36)
[2021-02-18] MEDS: Glucerna Carbsteady SHAKE Vanilla 8oz PO SCH ×2 (13:23→18:07)
[2021-02-18 13:50] LABS: Protein, Urine 296.1 mg/dL (0.0-11.9)
[2021-02-18 14:01] LABS: Urine Bacteria NONE SEEN /hpf (None Seen); Urine Blood TRACE /uL (Negative); Urine Specific Gravity 1.011 (1.001-1.035); Urine WBC <1 /hpf (0 - 3)
[2021-02-18 17:47] LABS: Hematocrit 29.4 % (41.0-53.0); Hemoglobin 9.9 g/dL (13.5-17.5)
[2021-02-18] MEDS: INSULIN LANTUS (GLARGINE) 1 /0.01ml (100units/ml) SC SCH (21:42)
[2021-02-19] MEDS: ACCU-CHEK COMFORT CURVE STRIP VI SCH ×6 (00:27→20:29)
[2021-02-19] MEDS: InsuLIN REG 1unit/0.01ml Soln (100units/ml) SC SCH ×6 (00:32→20:28)
[2021-02-19] MEDS ORDERED: INFLUENZA QUAD 2020-2021 0.5 ML SYRG IM ONE (04:15)
[2021-02-19] MEDS: SODIUM BICARBONATE 50ML VIAL 50 ML in SOD CHL 0.45% 1,000 ML IV SCH ×2 (05:09→07:45)
[2021-02-19 05:25] VITALS: BP 156/79
[2021-02-19 06:13] LABS: Basophils # (auto) 0.1 10 ^3/uL (0-0.2); Basophils % (auto) 0.8 % (0.0-2.0); Eosinophils # (auto) 0.3 10 ^3/uL (0-0.8); Eosinophils % (auto) 2.3 % (0.0-7.0); Hematocrit 27.2 % (41.0-53.0); Hemoglobin 8.7 g/dL (13.5-17.5); Lymphocytes # (auto) 0.7 10 ^3/uL (0.4-5.4); Mean Corpuscular Hemoglobin 26.1 pg (28.0-32.0); Mean Corpuscular Hgb Conc. 31.9 g/dL (32.0-36.0); Mean Corpuscular Volume 81.8 fL (80.0-100.0); Monocytes # (auto) 0.7 10 ^3/uL (0-1.3); Monocytes % (auto) 6.1 % (0.0-12.0); Neutrophils # (auto) 9.5 10 ^3/uL (1.6-8.6); Neutrophils % (auto) 84.8 % (37.0-80.0); Nucleated Red Blood Cells % 0.1 %; Platelet Count (auto) 429 10^3/uL (140-450); Red Blood Cells 3.32 10^6/uL (4.5-5.90); White Blood Cell 11.2 10^3/uL (4.4-10.8)
[2021-02-19 06:20] LABS: Red Cell Distribution Width 20.4 % (11.8-14.3)
[2021-02-19 06:31] LABS: Potassium 4.9 mmol/L (3.5-5.1)
[2021-02-19 06:36] LABS: Albumin 2.6 g/dL (3.4-5.0); BUN/Creatinine Ratio 15.8; Bilirubin, Total 0.2 mg/dL (0.2-1.0); Calcium 7.7 mg/dL (8.5-10.1); Magnesium 2.6 mg/dL (1.6-2.6); Phosphorus 2.9 mg/dL (2.5-4.90)
[2021-02-19] MEDS: Glucerna Carbsteady SHAKE Vanilla 8oz PO SCH ×3 (08:12→18:36)
[2021-02-19 09:00] VITALS: BP 177/75
[2021-02-19] MEDS: CARVEDILOL 3.125 MG TAB PO SCH ×2 (10:07→21:56)
[2021-02-19] MEDS: PANTOPRAZOLE 40 MG TAB PO SCH (10:07)
[2021-02-19 12:00] VITALS: BP 187/77
[2021-02-19] MEDS ORDERED: cloNIDine HCL 0.1 MG TAB PO PRN (13:00)
[2021-02-19] MEDS ORDERED: AZITHROMYCIN 250 MG TAB PO ONE (13:00)
[2021-02-19] MEDS ORDERED: amLODIPine BESYLATE 5 MG TAB PO ONE (13:00)
[2021-02-19] MEDS: hydrALAZINE HCL 20 MG/ML VL IV PRN (13:05)
[2021-02-19] MEDS: SODIUM BICARBONATE 650 MG TAB PO SCH ×2 (14:44→21:55)
[2021-02-19 16:36] VITALS: BP 142/69
[2021-02-19 18:13] LABS: Hematocrit 28.3 % (41.0-53.0); Hemoglobin 9.1 g/dL (13.5-17.5)
[2021-02-19] MEDS: hydrALAZINE HCL 25 MG TAB PO SCH (21:56)
[2021-02-19] MEDS: INSULIN LANTUS (GLARGINE) 1 /0.01ml (100units/ml) SC SCH (21:58)
[2021-02-19 22:00] VITALS: BP 136/70
[2021-02-20] MEDS: InsuLIN REG 1unit/0.01ml Soln (100units/ml) SC SCH ×6 (00:05→22:00)
[2021-02-20] MEDS: ACCU-CHEK COMFORT CURVE STRIP VI SCH ×6 (00:05→21:51)
[2021-02-20 05:00] VITALS: BP 143/74
[2021-02-20 05:46] LABS: Basophils # (auto) 0.1 10 ^3/uL (0-0.2); Basophils % (auto) 0.8 % (0.0-2.0); Eosinophils # (auto) 0.3 10 ^3/uL (0-0.8); Eosinophils % (auto) 2.6 % (0.0-7.0); Hematocrit 27.6 % (41.0-53.0); Hemoglobin 8.8 g/dL (13.5-17.5); Lymphocytes # (auto) 0.6 10 ^3/uL (0.4-5.4); Lymphocytes % (auto) 5.8 % (10.0-50.0); Mean Corpuscular Hemoglobin 27.3 pg (28.0-32.0); Mean Corpuscular Hgb Conc. 32.1 g/dL (32.0-36.0); Mean Corpuscular Volume 84.9 fL (80.0-100.0); Monocytes # (auto) 0.7 10 ^3/uL (0-1.3); Monocytes % (auto) 7.1 % (0.0-12.0); Neutrophils # (auto) 8.3 10 ^3/uL (1.6-8.6); Neutrophils % (auto) 83.7 % (37.0-80.0); Nucleated Red Blood Cells % 0.1 %; Platelet Count (auto) 395 10^3/uL (140-450); Red Blood Cells 3.25 10^6/uL (4.5-5.90); Red Cell Distribution Width 21.9 % (11.8-14.3)
[2021-02-20 06:07] LABS: BUN/Creatinine Ratio 19.4; Calcium 7.6 mg/dL (8.5-10.1); Potassium 5.3 mmol/L (3.5-5.1)
[2021-02-20] MEDS: SODIUM BICARBONATE 650 MG TAB PO SCH ×3 (07:04→21:52)
[2021-02-20 08:11] VITALS: BP 148/71
[2021-02-20] MEDS: Glucerna Carbsteady SHAKE Vanilla 8oz PO SCH ×3 (08:56→18:40)
[2021-02-20] MEDS: hydrALAZINE HCL 25 MG TAB PO SCH ×2 (09:47→21:55)
[2021-02-20] MEDS: PANTOPRAZOLE 40 MG TAB PO SCH (09:48)
[2021-02-20] MEDS: CARVEDILOL 3.125 MG TAB PO SCH ×2 (09:48→21:56)
[2021-02-20] MEDS: amLODIPine BESYLATE 5 MG TAB PO SCH (09:48)
[2021-02-20] MEDS: AZITHROMYCIN 250 MG TAB PO SCH (09:49)
[2021-02-20 12:30] VITALS: BP 181/73
[2021-02-20] MEDS ORDERED: SODIUM ZIRCONIUM CYCL 10 GM PAK PO ONE (12:30)
[2021-02-20] MEDS ORDERED: INSUINJ2 SC ×3 (12:48)
[2021-02-20] MEDS: hydrALAZINE HCL 20 MG/ML VL IV PRN (13:01)
[2021-02-20] MEDS ORDERED: FUROSEMIDE 20 MG/2 ML VIAL IV ONE (15:00)
[2021-02-20] MEDS ORDERED: FUROSEMIDE 100 MG/10ML VIAL IV ONE (15:00)
[2021-02-20 16:58] VITALS: BP 140/64
[2021-02-20 22:00] VITALS: BP 141/69
[2021-02-20] MEDS: INSULIN LANTUS (GLARGINE) 1 /0.01ml (100units/ml) SC SCH (22:00)
[2021-02-21] MEDS: ACCU-CHEK COMFORT CURVE STRIP VI SCH ×5 (01:03→17:04)
[2021-02-21 05:00] VITALS: BP 140/70
[2021-02-21] MEDS: InsuLIN REG 1unit/0.01ml Soln (100units/ml) SC SCH ×5 (05:18→17:04)
[2021-02-21] MEDS: SODIUM BICARBONATE 650 MG TAB PO SCH ×2 (05:18→13:41)
[2021-02-21 06:47] LABS: Basophils # (auto) 0.1 10 ^3/uL (0-0.2); Basophils % (auto) 0.5 % (0.0-2.0); Eosinophils # (auto) 0.1 10 ^3/uL (0-0.8); Hematocrit 28.5 % (41.0-53.0); Hemoglobin 9.6 g/dL (13.5-17.5); Lymphocytes # (auto) 0.4 10 ^3/uL (0.4-5.4); Lymphocytes % (auto) 3.4 % (10.0-50.0); Mean Corpuscular Hgb Conc. 33.6 g/dL (32.0-36.0); Mean Corpuscular Volume 83.3 fL (80.0-100.0); Monocytes # (auto) 0.5 10 ^3/uL (0-1.3); Monocytes % (auto) 4.6 % (0.0-12.0); Neutrophils # (auto) 9.4 10 ^3/uL (1.6-8.6); Neutrophils % (auto) 90.5 % (37.0-80.0); Platelet Count (auto) 413 10^3/uL (140-450); Red Blood Cells 3.42 10^6/uL (4.5-5.90); White Blood Cell 10.4 10^3/uL (4.4-10.8)
[2021-02-21 06:58] LABS: Red Cell Distribution Width 21.7 % (11.8-14.3)
[2021-02-21 07:45] LABS: BUN/Creatinine Ratio 20.9; Calcium 8.4 mg/dL (8.5-10.1)
[2021-02-21] MEDS: Glucerna Carbsteady SHAKE Vanilla 8oz PO SCH ×3 (08:45→17:46)
[2021-02-21 09:00] VITALS: BP 168/73
[2021-02-21] MEDS: hydrALAZINE HCL 25 MG TAB PO SCH (10:39)
[2021-02-21] MEDS: amLODIPine BESYLATE 5 MG TAB PO SCH (10:40)
[2021-02-21] MEDS: PANTOPRAZOLE 40 MG TAB PO SCH (10:40)
[2021-02-21] MEDS: CARVEDILOL 3.125 MG TAB PO SCH (10:40)
[2021-02-21] MEDS: AZITHROMYCIN 250 MG TAB PO SCH (10:40)
[2021-02-21] MEDS ORDERED: FUROSEMIDE 20 MG/2 ML VIAL IV ONE (12:15)
[2021-02-21 13:00] VITALS: BP 148/71
[2021-02-21] MEDS ORDERED: ATO40T PO ×2 (15:53)
[2021-02-21] MEDS ORDERED: INSLANTI SC ×2 (15:53)
[2021-02-21] MEDS ORDERED: SODIUM ZIRCONIUM CYCL 10 GM PAK PO ONE (16:00)
[2021-02-21 16:13] VITALS: BP 148/71
[2021-02-21 17:00] VITALS: BP 136/68
== END 2021-02-21 19:00 | disposition home health service (06) | DRG 637 ==
LOC: ER 15:14 → TELE 15:15 → UNDOADMIN 15:15 → TELE-WESTW 15:15
PROVIDERS: ADMIT Family Medicine; ATTEND Internal Medicine
PROC: 30233N1 Transfusion of Nonautologous Red Blood Cells into Peripheral Vein, Percutaneous Approach (ICD-10-PCS; principal; 2021-02-18)
PROC: 05H933Z Insertion of Infusion Device into Right Brachial Vein, Percutaneous Approach (ICD-10-PCS; 2021-02-18)
PROC: B54MZZA Ultrasonography of Right Upper Extremity Veins, Guidance (ICD-10-PCS; 2021-02-18)
DX: E11.00 Type 2 diabetes mellitus with hyperosmolarity without nonketotic hyperglycemic-hyperosmolar coma (NKHHC) (principal); N17.0 Acute kidney failure with tubular necrosis; E87.0 Hyperosmolality and hypernatremia; I50.32 Chronic diastolic (congestive) heart failure; E87.2 Acidosis; E87.1 Hypo-osmolality and hyponatremia; I13.0 Hypertensive heart and chronic kidney disease with heart failure and stage 1 through stage 4 chronic kidney disease, or unspecified chronic kidney disease; N18.4 Chronic kidney disease, stage 4 (severe); Z20.822 Contact with and (suspected) exposure to COVID-19; E11.65 Type 2 diabetes mellitus with hyperglycemia; E88.09 Other disorders of plasma-protein metabolism, not elsewhere classified; D63.1 Anemia in chronic kidney disease; E78.5 Hyperlipidemia, unspecified; E83.51 Hypocalcemia; K21.9 Gastro-esophageal reflux disease without esophagitis; E11.22 Type 2 diabetes mellitus with diabetic chronic kidney disease; E87.5 Hyperkalemia; F17.210 Nicotine dependence, cigarettes, uncomplicated; I25.10 Atherosclerotic heart disease of native coronary artery without angina pectoris; Z82.49 Family history of ischemic heart disease and other diseases of the circulatory system; Z83.3 Family history of diabetes mellitus; Z86.73 Personal history of transient ischemic attack (TIA), and cerebral infarction without residual deficits; Z91.19 Patient's noncompliance with other medical treatment and regimen; Z95.5 Presence of coronary angioplasty implant and graft; Z79.4 Long term (current) use of insulin
CPT/HCPCS: 36415; 36600; 71045; 76775; 80048; 80053; 81001; 82010; 82570; 82805; 82962; 83735; 83880; 84100; 84156; 84300; 84443; 84484; 85014; 85018; 85025; 85610; 86850; 86900; 86901; 86920; 87081; 87426; 96361; 96372; 96374; 99291; G0378; J1815

== ENCOUNTER → 2021-02-17 | Outpatient (CLI) | payer MEDICARE, OTHER ==
[2021-02-17 11:40] LABS: Basophils # (auto) 0.1 10 ^3/uL (0-0.2); Eosinophils # (auto) 0.1 10 ^3/uL (0-0.8); Hemoglobin 7.7 g/dL (13.5-17.5); Lymphocytes # (auto) 0.6 10 ^3/uL (0.4-5.4); Lymphocytes % (auto) 5.5 % (10.0-50.0); Red Cell Distribution Width 20.8 % (11.8-14.3)
[2021-02-17 11:42] LABS: Basophils % (auto) 0.8 % (0.0-2.0); Eosinophils % (auto) 0.9 % (0.0-7.0); Hematocrit 25.3 % (41.0-53.0); Mean Corpuscular Hemoglobin 26.6 pg (28.0-32.0); Mean Corpuscular Hgb Conc. 30.4 g/dL (32.0-36.0); Mean Corpuscular Volume 87.5 fL (80.0-100.0); Monocytes # (auto) 0.3 10 ^3/uL (0-1.3); Monocytes % (auto) 2.6 % (0.0-12.0); Neutrophils # (auto) 9.3 10 ^3/uL (1.6-8.6); Neutrophils % (auto) 90.2 % (37.0-80.0); Nucleated Red Blood Cells % 0.1 %; Platelet Count (auto) 408 10^3/uL (140-450); Red Blood Cells 2.89 10^6/uL (4.5-5.90); White Blood Cell 10.3 10^3/uL (4.4-10.8)
[2021-02-17 13:50] LABS: Albumin 3.3 g/dL (3.4-5.0); Calcium 8.5 mg/dL (8.5-10.1); Potassium 4.5 mmol/L (3.5-5.1)
[2021-02-17 14:01] LABS: BUN/Creatinine Ratio 17.4; Bilirubin, Total 0.3 mg/dL (0.2-1.0); Total Protein 7.3 g/dL (6.4-8.2)
== END | disposition home or self-care (01) ==
LOC: LAB 10:48
PROVIDERS: ATTEND Internal Medicine
DX: D69.6 Thrombocytopenia, unspecified (principal); D64.9 Anemia, unspecified; E88.09 Other disorders of plasma-protein metabolism, not elsewhere classified
CPT/HCPCS: 36415; 80053; 83615; 85025

== ENCOUNTER 2021-03-07 15:51 | Emergency (ER) | payer MEDICARE, OTHER ==
[~2021-03-07] VITALS: Ht 167.6 cm; Wt 60.8 kg
[~2021-03-07 15:51] MED LIST changes: +ATO40T PO; -ATOR20TA50 PO; +INSLANTI SC; +INSUINJ2 SC
[2021-03-07 17:54] LABS: Basophils # (auto) 0.1 10 ^3/uL (0-0.2); Eosinophils # (auto) 0.2 10 ^3/uL (0-0.8); Eosinophils % (auto) 2.8 % (0.0-7.0); Hematocrit 28.3 % (41.0-53.0); Lymphocytes # (auto) 0.6 10 ^3/uL (0.4-5.4); Lymphocytes % (auto) 7.1 % (10.0-50.0); Mean Corpuscular Hemoglobin 27.7 pg (28.0-32.0); Mean Corpuscular Hgb Conc. 31.7 g/dL (32.0-36.0); Mean Corpuscular Volume 87.1 fL (80.0-100.0); Monocytes # (auto) 0.5 10 ^3/uL (0-1.3); Monocytes % (auto) 6.4 % (0.0-12.0); Neutrophils # (auto) 6.8 10 ^3/uL (1.6-8.6); Neutrophils % (auto) 82.7 % (37.0-80.0); Nucleated Red Blood Cells % 0.1 %; Platelet Count (auto) 333 10^3/uL (140-450); Red Blood Cells 3.25 10^6/uL (4.5-5.90); White Blood Cell 8.3 10^3/uL (4.4-10.8)
[2021-03-07 17:55] LABS: Red Cell Distribution Width 21.3 % (11.8-14.3)
[2021-03-07 18:14] LABS: Albumin 3.1 g/dL (3.4-5.0); Potassium 5.2 mmol/L (3.5-5.1)
[2021-03-07 18:17] LABS: BUN/Creatinine Ratio 19.7; Bilirubin, Total 0.2 mg/dL (0.2-1.0); Total Protein 6.8 g/dL (6.4-8.2)
[2021-03-07 19:50] VITALS: BP 131/62
== END 2021-03-07 22:05 | disposition home or self-care (01) ==
LOC: ER 15:51
DX: I13.0 Hypertensive heart and chronic kidney disease with heart failure and stage 1 through stage 4 chronic kidney disease, or unspecified chronic kidney disease (principal); E11.22 Type 2 diabetes mellitus with diabetic chronic kidney disease; N18.9 Chronic kidney disease, unspecified; N17.9 Acute kidney failure, unspecified; I50.9 Heart failure, unspecified; I25.10 Atherosclerotic heart disease of native coronary artery without angina pectoris; F17.210 Nicotine dependence, cigarettes, uncomplicated; K21.9 Gastro-esophageal reflux disease without esophagitis; E78.5 Hyperlipidemia, unspecified; Z86.73 Personal history of transient ischemic attack (TIA), and cerebral infarction without residual deficits; Z86.2 Personal history of diseases of the blood and blood-forming organs and certain disorders involving the immune mechanism; Z79.899 Other long term (current) drug therapy
CPT/HCPCS: 36415; 70450; 71045; 80053; 83880; 85025; 93005

== ENCOUNTER → 2021-03-10 | Outpatient (CLI) | payer MEDICARE, OTHER ==
[2021-03-10 14:12] LABS: Basophils # (auto) 0.1 10 ^3/uL (0-0.2); Eosinophils # (auto) 0.2 10 ^3/uL (0-0.8); Eosinophils % (auto) 3.5 % (0.0-7.0); Hematocrit 27.6 % (41.0-53.0); Hemoglobin 8.7 g/dL (13.5-17.5); Lymphocytes # (auto) 0.4 10 ^3/uL (0.4-5.4); Lymphocytes % (auto) 7.7 % (10.0-50.0); Mean Corpuscular Hemoglobin 27.2 pg (28.0-32.0); Mean Corpuscular Hgb Conc. 31.6 g/dL (32.0-36.0); Mean Corpuscular Volume 86.2 fL (80.0-100.0); Monocytes # (auto) 0.3 10 ^3/uL (0-1.3); Monocytes % (auto) 5.1 % (0.0-12.0); Neutrophils # (auto) 4.6 10 ^3/uL (1.6-8.6); Neutrophils % (auto) 82.7 % (37.0-80.0); Nucleated Red Blood Cells % 0.1 %; Platelet Count (auto) 297 10^3/uL (140-450); Red Cell Distribution Width 20.6 % (11.8-14.3); White Blood Cell 5.6 10^3/uL (4.4-10.8)
[2021-03-10 15:03] LABS: Calcium 8.1 mg/dL (8.5-10.1); Potassium 5.4 mmol/L (3.5-5.1); Uric Acid 5.2 mg/dL (3.5-7.2)
[2021-03-10 15:06] LABS: % Iron Saturation 13.6 % (20-55); Bilirubin, Total 0.3 mg/dL (0.2-1.0); Total Protein 6.4 g/dL (6.4-8.2)
[2021-03-10 15:14] LABS: Ferritin 97.9 ng/mL (10-322)
[2021-03-10 15:15] LABS: Folate (Folic Acid) 15.25 ng/mL (5.38-24)
[2021-03-11 08:06] LABS: Immunoglobulin G, Serum 981 mg/dL (603-1613)
== END | disposition home or self-care (01) ==
LOC: LAB 13:36
PROVIDERS: ATTEND Internal Medicine
DX: E11.22 Type 2 diabetes mellitus with diabetic chronic kidney disease (principal); N18.4 Chronic kidney disease, stage 4 (severe); D69.6 Thrombocytopenia, unspecified; D64.9 Anemia, unspecified; E88.09 Other disorders of plasma-protein metabolism, not elsewhere classified
CPT/HCPCS: 36415; 80053; 82232; 82607; 82728; 82746; 82784; 83540; 83550; 83615; 83883; 84155; 84165; 84550; 85025; 86334; 86335

== ENCOUNTER 2021-03-13 17:43 | Emergency (ER) | payer MEDICARE, OTHER ==
[~2021-03-13] VITALS: Ht 167.6 cm; Wt 59.0 kg
[2021-03-13 21:47] LABS: Basophils # (auto) 0.1 10 ^3/uL (0-0.2); Basophils % (auto) 1.1 % (0.0-2.0); Eosinophils # (auto) 0.3 10 ^3/uL (0-0.8); Eosinophils % (auto) 4.4 % (0.0-7.0); Hematocrit 30.5 % (41.0-53.0); Hemoglobin 9.5 g/dL (13.5-17.5); Lymphocytes # (auto) 0.8 10 ^3/uL (0.4-5.4); Lymphocytes % (auto) 11.9 % (10.0-50.0); Mean Corpuscular Hemoglobin 27.2 pg (28.0-32.0); Mean Corpuscular Hgb Conc. 31.3 g/dL (32.0-36.0); Monocytes # (auto) 0.6 10 ^3/uL (0-1.3); Monocytes % (auto) 8.5 % (0.0-12.0); Neutrophils # (auto) 5.1 10 ^3/uL (1.6-8.6); Neutrophils % (auto) 74.1 % (37.0-80.0); Nucleated Red Blood Cells % 0.2 %; Platelet Count (auto) 324 10^3/uL (140-450); Red Cell Distribution Width 19.4 % (11.8-14.3); White Blood Cell 6.9 10^3/uL (4.4-10.8)
[2021-03-13 22:06] LABS: Chloride 111 mmol/L (98-107); Potassium 5.2 mmol/L (3.5-5.1); Sodium 137 mmol/L (136-145)
[2021-03-13 22:11] LABS: Alanine Aminotransferase 21 U/L (16-61); Albumin 3.2 g/dL (3.4-5.0); Alkaline Phosphatase 116 U/L (45-117); Anion Gap 8 (5-15); Aspartate Aminotransferase 29 U/L (15-37); BUN/Creatinine Ratio 13.5; Bilirubin, Total 0.3 mg/dL (0.2-1.0); Blood Urea Nitrogen 42 mg/dL (7-18); Calcium 7.7 mg/dL (8.5-10.1); Carbon Dioxide 18 mmol/L (21-32); GFR African American 26 mL/min; GFR Non-African American 21 mL/min; Glucose 144 mg/dL (74-106); Magnesium 3.2 mg/dL (1.6-2.6)
[2021-03-14] MEDS ORDERED: amLODIPine BESYLATE 5 MG TAB PO ONE (01:15)
[2021-03-14] MEDS ORDERED: hydrALAZINE HCL 25 MG TAB PO ONE (01:15)
[2021-03-14 02:25] VITALS: BP 138/55
== END 2021-03-14 02:42 | disposition home or self-care (01) ==
LOC: ER 17:43
DX: D64.9 Anemia, unspecified (principal); R22.43 Localized swelling, mass and lump, lower limb, bilateral; R22.33 Localized swelling, mass and lump, upper limb, bilateral; R53.1 Weakness; E11.22 Type 2 diabetes mellitus with diabetic chronic kidney disease; I13.0 Hypertensive heart and chronic kidney disease with heart failure and stage 1 through stage 4 chronic kidney disease, or unspecified chronic kidney disease; N18.9 Chronic kidney disease, unspecified; I50.9 Heart failure, unspecified; K21.9 Gastro-esophageal reflux disease without esophagitis; I25.10 Atherosclerotic heart disease of native coronary artery without angina pectoris; F17.210 Nicotine dependence, cigarettes, uncomplicated
CPT/HCPCS: 36415; 71046; 80053; 83735; 83880; 84484; 85025; 86850; 86900; 86901; 93005

== ENCOUNTER → 2021-03-17 | Outpatient (CLI) | payer MEDICARE, OTHER ==
[2021-03-17 09:53] LABS: Basophils # (auto) 0.1 10 ^3/uL (0-0.2); Basophils % (auto) 1.4 % (0.0-2.0); Eosinophils # (auto) 0.2 10 ^3/uL (0-0.8); Eosinophils % (auto) 3.8 % (0.0-7.0); Hematocrit 28.9 % (41.0-53.0); Hemoglobin 9.3 g/dL (13.5-17.5); Lymphocytes # (auto) 0.5 10 ^3/uL (0.4-5.4); Lymphocytes % (auto) 8.3 % (10.0-50.0); Mean Corpuscular Hemoglobin 27.1 pg (28.0-32.0); Mean Corpuscular Hgb Conc. 32.3 g/dL (32.0-36.0); Mean Corpuscular Volume 83.8 fL (80.0-100.0); Monocytes # (auto) 0.4 10 ^3/uL (0-1.3); Neutrophils # (auto) 4.4 10 ^3/uL (1.6-8.6); Neutrophils % (auto) 78.5 % (37.0-80.0); Platelet Count (auto) 246 10^3/uL (140-450); Red Blood Cells 3.45 10^6/uL (4.5-5.90); Red Cell Distribution Width 19.1 % (11.8-14.3); White Blood Cell 5.6 10^3/uL (4.4-10.8)
[2021-03-17 10:49] LABS: Albumin 3.2 g/dL (3.4-5.0); BUN/Creatinine Ratio 12.9; Bilirubin, Total 0.3 mg/dL (0.2-1.0); Calcium 8.4 mg/dL (8.5-10.1); Total Protein 6.5 g/dL (6.4-8.2)
== END | disposition home or self-care (01) ==
LOC: LAB 09:28
PROVIDERS: ATTEND Internal Medicine
DX: E88.09 Other disorders of plasma-protein metabolism, not elsewhere classified (principal); D69.6 Thrombocytopenia, unspecified; D64.9 Anemia, unspecified
CPT/HCPCS: 36415; 80053; 83615; 85025

== ENCOUNTER → 2021-04-07 | Outpatient (CLI) | payer MEDICARE, OTHER ==
[2021-04-07 10:10] LABS: Basophils # (auto) 0.1 10 ^3/uL (0-0.2); Basophils % (auto) 0.5 % (0.0-2.0); Eosinophils # (auto) 0 10 ^3/uL (0-0.8); Eosinophils % (auto) 0.1 % (0.0-7.0); Hemoglobin 11.2 g/dL (13.5-17.5); Lymphocytes # (auto) 0.6 10 ^3/uL (0.4-5.4); Lymphocytes % (auto) 4.2 % (10.0-50.0); Mean Corpuscular Hemoglobin 26.1 pg (28.0-32.0); Mean Corpuscular Volume 81.3 fL (80.0-100.0); Monocytes # (auto) 0.7 10 ^3/uL (0-1.3); Monocytes % (auto) 5.6 % (0.0-12.0); Neutrophils # (auto) 11.7 10 ^3/uL (1.6-8.6); Neutrophils % (auto) 89.6 % (37.0-80.0); Platelet Count (auto) 320 10^3/uL (140-450); Red Blood Cells 4.31 10^6/uL (4.5-5.90); Red Cell Distribution Width 18.3 % (11.8-14.3); White Blood Cell 13.1 10^3/uL (4.4-10.8)
[2021-04-07 10:18] LABS: Potassium 4.6 mmol/L (3.5-5.1)
[2021-04-07 10:28] LABS: Albumin 3.5 g/dL (3.4-5.0); Bilirubin, Total 0.3 mg/dL (0.2-1.0); Calcium 9.2 mg/dL (8.5-10.1); Total Protein 7.5 g/dL (6.4-8.2)
== END | disposition home or self-care (01) ==
LOC: LAB 09:19
PROVIDERS: ATTEND Internal Medicine Nephrology
DX: N18.4 Chronic kidney disease, stage 4 (severe) (principal); E11.22 Type 2 diabetes mellitus with diabetic chronic kidney disease
CPT/HCPCS: 36415; 80053; 80061; 83036; 84443; 85025